=== PATIENT | female | born 1970 | race Caucasian/White ===

== ENCOUNTER 2016-04-21 07:12 | Emergency (ER) | payer MEDICARE, MEDICAID ==
[2016-04-21] MEDS ORDERED: ONDANSETRON HCL IV 4 MG/2 ML VIAL IVP ONE (07:26)
[2016-04-21] MEDS ORDERED: 0.9 % SODIUM CHLORIDE 1000ML 1,000 ML IV SCH (07:30)
--- NOTE | 2016-04-21 07:32 | Emergency Department Record ---
History of Present Illness - General Chief complaint: Vomiting Stated complaint: ABD PAIN & VOMITING Time Seen by Provider: 04/21/16 07:25 Source: Patient Mode of Arrival: Ambulatory Limitations: No limitations - History of Present Illness Initial comments: 45 yo female presents to ED with a CC of recurrent abdominal pain and vomiting symptoms. Patient reports similar symptoms following her Remicade infusions that she receives for her arthritis symptoms (last infusion was 1 week ago). Patient reports taking her Reglan at home x 2, vomited up the medication x 2. Patient denies fevers, chills, or recent illness. Patient reports that she has been evaluated for GB dysfunction and will be seeing Dr. Sandoval in the [facility] Specialty clinic in 2 weeks time. MD complaint: Abdominal pain, Nausea, Vomiting Onset/Timin -: Days(s) Description of Vomiting: Watery Location: Epigastric Radiation: Back Severity: Severe Severity scale (1-10): 10 Quality: Sharp Consistency: Constant Improves with: None Worsens with: Vomiting Context: Other Associated Symptoms: Nausea/vomiting - Related Data Home Medications Medication Instructions Recorded Confirmed Last Taken Oxymorphone HCl [Opana] 10 mg PO TID 06/21/14 04/21/16 02/23/16 Oxymorphone HCl [Opana Er] 30 mg PO Q12H tab 03/26/16 04/21/16 Unknown Previous Rx's Medication Instructions Recorded Promethazine HCl [Phenergan] 25 mg RC Q6H PRN #30 supp.rect 04/21/16 Allergies Allergy/AdvReac Type Severity Reaction Status Date / Time etanercept [From Enbrel] Allergy Severe HIVES Unverified 03/26/16 14:41 Echinacea [ECHINACEA] Allergy Unknown SWELLING Unverified 03/26/16 14:41 OF THE TONGUE hydroxychloroquine sulfate Allergy Unknown DIARRHEA Unverified 03/26/16 14:41 [From PLAQUENIL] hyoscyamine sulfate Allergy Unknown SKIN Unverified 03/26/16 14:41 [From LEVSIN] IRRITATION ketorolac tromethamine Allergy Unknown HIVES Unverified 03/26/16 14:41 [From TORADOL] methotrexate [METHOTREXATE] Allergy Unknown HYPERSENSIT Unverified 03/26/16 14: 41 IVITY Wpeocsg-Yxh-Cwt Reductase Allergy Unknown HIVES Unverified 03/26/16 14:41 Inhibitor [[id number] REDUCTASE INHIBITOR] Sulfa (Sulfonamide Allergy Unknown HIVES Unverified 03/26/16 14:41 Antibiotics) [SULFA(SULFONAMIDE ANTIBIOTICS)] niacin Allergy HIVES Unverified 03/26/16 14:41 Travel Screening - Travel/Exposure Within Last 30 Days Have you traveled within the last 30 days?: No Review of Systems Constitutional: Denies: Chills, Fever, Malaise, Night sweats Eyes: Denies: Eye discharge, Eye pain ENT: Denies: Congestion, Ear pain, Epistaxis Respiratory: Denies: Cough, Dyspnea Cardiovascular: Denies: Chest pain, Dyspnea on exertion Endocrine: Denies: Fatigue, Heat or cold intolerance Gastrointestinal: Reports: Abdominal pain, Nausea, Vomiting. Denies: Constipation Genitourinary: Denies: Dysuria, Frequency, Hematuria, Incontinence Musculoskeletal: Denies: Arthralgia, Back pain Skin: Denies: Bruising, Change in color Neurological: Denies: Abnormal gait, Confusion, Headache, Seizure Psychiatric: Reports: Anxiety Hematological/Lymphatic: Denies: Anemia, Blood Clots Past Medical History - SOCIAL HISTORY Smoking Status: Light tobacco smoker (<10/day) Alcohol Use: None Drug Use: None - RESPIRATORY Hx Respiratory Disorders: Yes Hx Pneumonia: Yes - CARDIOVASCULAR Hx Cardio Disorders: Yes Comment:: murmur - NEURO Hx Neuro Disorders: Yes Hx Headaches: Yes Hx Neuropathy: Yes Comment:: viral meningytis - GI Hx GI Disorders: Yes Hx Reflux: Yes Hx Irritable Bowel: Yes - Hx Genitourinary Disorders: No - ENDOCRINE Hx Endocrine Disorders: No - MUSCULOSKELETAL Hx Musculoskeletal Disorders: Yes Hx Arthritis: Yes Comment:: Chronic back pain...herniated discs - PSYCH Hx Psych Problems: Yes Hx Anxiety: Yes Hx Depression: Yes - HEMATOLOGY/ONCOLOGY Hx Hematology/Oncology Disorders: No Family Medical History Any Significant Family History?: No Physical Exam - General General Appearance: Alert, Oriented x3, Cooperative, Anxious Limitations: No limitations - Head Head exam: Atraumatic, Normocephalic, Normal inspection Head exam detail: negative: Abrasion, Contusion, Beyer's sign, General tenderness, Hematoma, Laceration - Eye Eye exam: Normal appearance. negative: Conjunctival injection, Periorbital swelling, Periorbital tenderness, Scleral icterus - ENT Ear exam: negative: Auricular hematoma, Auricular trauma Nasal Exam: negative: Active bleeding, Discharge, Dried blood, Foreign body Mouth exam: negative: Drooling, Laceration, Muffled voice, Tongue elevation - Neck Neck exam: Normal inspection. negative: Meningismus, Tenderness - Respiratory Respiratory exam: Normal lung sounds bilaterally. negative: Respiratory distress, Rhonchi, Stridor, Wheezes - Cardiovascular Cardiovascular Exam: Regular rate, Normal rhythm, Normal heart sounds - GI/Abdominal GI/Abdominal exam: Soft, Tenderness (mild TTP epigastric region, no rebound or guarding symptoms are present, no peritoneal signs on examination.). negative: Rebound, Rigid - Rectal Rectal exam: Deferred - exam: Deferred - Extremities Extremities exam: Normal inspection. negative: Calf tenderness, Pedal edema, Tenderness - Back Back exam: Reports: Normal inspection. Denies: CVA tenderness (R), CVA tenderness (L) - Neurological Neurological exam: Alert, Normal gait, Oriented X3 - Psychiatric Psychiatric exam: Anxious - Skin Skin exam: Normal color. negative: Abrasion Type of lesion: negative: abrasion Course Vital Signs 04/21/16 07:22 Temperature 98.3 F Pulse Rate [ 52 L Pulse Ox Probe] Respiratory 22 Rate Blood Pressure 158/123 [Left Arm] Pulse Ox 98 - Reevaluation(s) Reevaluation #1: 04/21/16 07:51 Labs reviewed, CO2 18, AG 19, labs are otherwise grossly unremarkable for an acute process. 04/21/16 07:52 Reevaluation #2: 04/21/16 08:06 Patient reassessed, no further vomiting, resting comfortably. Patient was updated on all results thus far, IVFs are infusing. Will reassess when IVFs are completed. Reevaluation #3: 04/21/16 09:05 Patient's IVFs have completed infusing, reports that her nausea symptoms are greatly improved following IV reglan and Benadryl. Patient appears stable for discharge at this time. Medical Decision Making - Lab Data Result diagrams: 04/21/16 07:25 04/21/16 07:25 Disposition Disposition: Discharge Clinical Impression: Vomiting Qualifiers: Vomiting type: unspecified Vomiting Intractability: non-intractable Nausea presence: with nausea Qualified Code(s): R11.2 - Nausea with vomiting, unspecified Disposition: Home, Self-Care Condition: (2) Stable Instructions: Acute Nausea and Vomiting (ED) Additional Instructions: Return to ED if your symptoms worsen or if you have any concerns. Phenergan suppositories as directed. Follow-up with Dr. Biggs in 1-3 days as directed. Prescriptions: Promethazine HCl [Phenergan] 25 mg RC Q6H PRN #30 supp.rect PRN Reason: Nausea/Vomiting Forms: Patient Portal Access Time of Disposition: 09:06
[2016-04-21 07:35] LABS: HEMATOCRIT 45.3 % (35.0-47.0); HEMOGLOBIN 15.7 gm/dl (11.6-16.0); MEAN CELL VOLUME 89.5 fl (81-97); MEAN CORPUSCULAR HGB CONC 34.7 g/dl (32-36); MEAN PLATELET VOLUME 11.1 fl (7.4-10.4); PLATELET COUNT 290 K/uL (130-400); RED BLOOD COUNT 5.06 M/uL (3.80-5.40); RED CELL DISTRIBUTION WIDTH 11.6 % (11.5-14.5); WHITE BLOOD COUNT W/O DIFF 9.3 K/uL (4.2-12.2)
[2016-04-21 07:44] LABS: PLATELET ESTIMATE NORMAL (NORMAL)
[2016-04-21 07:46] LABS: ALB/GLOB RATIO 1.4 (1.1-1.8); ALBUMIN 4.6 gm/dL (3.5-5.0); ALKALINE PHOSPHATASE 84 U/L (38-126); ALT/SGPT 37 U/L (9-52); ANION GAP 19.1 (7-16); AST/SGOT 39 U/L (14-36); BILIRUBIN,TOTAL 0.45 mg/dL (0.2-1.3); BLOOD UREA NITROGEN 9 mg/dL (7-17); CARBON DIOXIDE 17.9 mmol/L (22-30); CREATININE 0.6 mg/dL (0.52-1.04); EST GLOMERULAR FILTRATION RATE > 60 ml/min; GLUCOSE,RANDOM 100 mg/dL (70-110); LIPASE 147 U/L (23-300); TOTAL PROTEIN 7.9 gm/dL (6.3-8.2)
[2016-04-21] MEDS ORDERED: DIPHENHYDRAMINE HCL IV 50 MG/ML VIAL IVP ONE (08:37)
[2016-04-21] MEDS ORDERED: METOCLOPRAMIDE HCL 10 MG/2 ML VIAL IVP ONE (08:37)
== END 2016-04-21 09:18 | disposition home or self-care (01) ==
LOC: ER 07:12
DX: R11.2 Nausea with vomiting, unspecified (principal); R10.13 Epigastric pain
CPT/HCPCS: 99284 ×2; 96374; 96375; 96361; 83690; 80053; 85027; J2405; J1200; J2765; J7030

== ENCOUNTER 2017-03-11 09:44 | Observation (INO) | payer MEDICARE ==
[2017-03-11] MEDS ORDERED: 0.9 % SODIUM CHLORIDE 1,000 ML BAG IV ONE (09:55)
--- NOTE | 2017-03-11 10:02 | Emergency Department Record ---
History of Present Illness - General Chief complaint: Vomiting Stated complaint: vomiting Time Seen by Provider: 03/11/17 09:52 Source: Patient, Family Mode of Arrival: Ambulatory Limitations: No limitations - History of Present Illness Initial comments: 46 yo female presents with nausea, vomiting and abdominal pain. She reports for several years she has had recurrent episodes of similar nausea, vomiting and abdominal pain. No fever. The onset was this morning. She tried her medications without improvement. She states she has seen GI here at [facility] and she states no cause for her episodes has been found. She reports she is on a PPI daily and PRN antiemetics about once a month. MD complaint: Abdominal pain, Nausea, Vomiting Onset/Timin -: Hour(s) Description of Vomiting: Watery Associated Abdominal Pain: Yes Location: RUQ Radiation: None Severity: Severe Severity scale (1-10): 10 Consistency: Constant Improves with: None Worsens with: None Associated Symptoms: Fever/chills, Nausea/vomiting - Related Data Home Medications Medication Instructions Recorded Confirmed Last Taken Morphine Sulfate 30 mg PO Q12H 03/11/17 03/11/17 Unknown Allergies Allergy/AdvReac Type Severity Reaction Status Date / Time etanercept [From Enbrel] Allergy Severe HIVES Verified 03/11/17 09:55 Echinacea [ECHINACEA] Allergy Unknown SWELLING Verified 03/11/17 09:55 OF THE TONGUE hydroxychloroquine sulfate Allergy Unknown DIARRHEA Verified 03/11/17 09:55 [From PLAQUENIL] hyoscyamine sulfate Allergy Unknown SKIN Verified 03/11/17 09:55 [From LEVSIN] IRRITATION ketorolac tromethamine Allergy Unknown HIVES Verified 03/11/17 09:55 [From TORADOL] methotrexate [METHOTREXATE] Allergy Unknown HYPERSENSIT Verified 03/11/17 09:55 IVITY Ohsyrzt-Kdy-Zju Reductase Allergy Unknown HIVES Verified 03/11/17 09:55 Inhibitor [[id number] REDUCTASE INHIBITOR] Sulfa (Sulfonamide Allergy Unknown HIVES Verified 03/11/17 09:55 Antibiotics) [SULFA(SULFONAMIDE ANTIBIOTICS)] niacin Allergy HIVES Verified 03/11/17 09:55 Travel Screening - Travel/Exposure Within Last 30 Days Have you traveled within the last 30 days?: No Review of Systems Constitutional: Denies: Chills, Fever, Malaise, Weakness Eyes: Denies: Eye discharge ENT: Denies: Congestion, Throat pain Respiratory: Denies: Cough, Dyspnea, Hemoptysis, Stridor, Wheezes Cardiovascular: Denies: Chest pain, Palpitations, Syncope Endocrine: Denies: Fatigue, Polydipsia, Polyuria Gastrointestinal: Reports: Abdominal pain, Nausea, Vomiting. Denies: Constipation, Diarrhea, Hematemesis, Hematochezia, Melena Genitourinary: Denies: Dysuria, Urgency Musculoskeletal: Denies: Arthralgia, Back pain, Joint swelling, Myalgia Skin: Denies: Bruising, Change in color Neurological: Denies: Confusion, Headache, Numbness, Weakness Psychiatric: Denies: Anxiety Hematological/Lymphatic: Denies: Blood Clots, Easy bleeding, Easy bruising, Swollen glands Past Medical History - SOCIAL HISTORY Smoking Status: Light tobacco smoker (<10/day) Alcohol Use: None Drug Use: None - RESPIRATORY Hx Respiratory Disorders: Yes Hx Pneumonia: Yes - CARDIOVASCULAR Hx Cardio Disorders: Yes - NEURO Hx Neuro Disorders: Yes Hx Headaches: Yes Hx Neuropathy: Yes Comment:: viral meningytis - GI Hx GI Disorders: Yes Hx Abdominal Pain: Yes Hx Reflux: Yes Hx Irritable Bowel: Yes Hx Nausea/Vomiting: Yes Hx Wt Loss/Wt Gain: Yes (30#'s in 6 mos) - Hx Genitourinary Disorders: No - ENDOCRINE Hx Endocrine Disorders: No - MUSCULOSKELETAL Hx Musculoskeletal Disorders: Yes Hx Arthritis: Yes (RA) Comment:: Chronic back pain...herniated discs/Lupus - PSYCH Hx Psych Problems: Yes Hx Anxiety: Yes Hx Depression: Yes - HEMATOLOGY/ONCOLOGY Hx Hematology/Oncology Disorders: Yes Hx Bruising: Yes (after Remicade inf) Family Medical History Any Significant Family History?: Yes Hx Cancer: Grandparents *Cancer Comment: Grandmother/uncle-colon cancer Physical Exam - General General Appearance: Alert, Oriented x3, Cooperative, No acute distress Limitations: No limitations - Head Head exam: Normal inspection - Eye Eye exam: Normal appearance. negative: Conjunctival injection - ENT ENT exam: Normal exam, Mucous membranes moist Ear exam: Normal external inspection Nasal Exam: Normal inspection Mouth exam: Normal external inspection - Neck Neck exam: Normal inspection - Respiratory Respiratory exam: Normal lung sounds bilaterally. negative: Respiratory distress - Cardiovascular Cardiovascular Exam: Regular rate, Normal rhythm, Normal heart sounds - GI/Abdominal GI/Abdominal exam: Soft, Tenderness (epigstric). negative: Distended, Guarding , Hypoactive bowel sounds, Rebound - Rectal Rectal exam: Deferred - exam: Deferred - Extremities Extremities exam: Normal inspection, Full ROM, Normal capillary refill. negative: Tenderness - Back Back exam: Reports: Normal inspection, Full ROM. Denies: Muscle spasm, Rash noted, Tenderness - Neurological Neurological exam: Alert, Normal gait, Oriented X3 - Psychiatric Psychiatric exam: Normal affect, Normal mood - Skin Skin exam: Dry, Intact, Normal color, Warm Course Vital Signs 03/11/17 09:49 Temperature 97.8 F Pulse Rate 51 L Respiratory 22 Rate Blood Pressure 147/93 Pulse Ox 99 - Reevaluation(s) Reevaluation #1: 03/11/17 10:02 EMR reviewed. Gastritis noted on a 05/2016 endoscopy 03/11/17 10:48 No acute changes in the CBC 03/11/17 11:22 EKG 11:06 sinus brittny 45, intervals normal normal QTc, axis normal, ST normal. Prior EKG with sinus brittny 03/11/17 11:26 The patient was sleeping resting comfortably, no current vomiting. Upon waking she still has nausea and pain 03/11/17 12:18 The CBC,CMP and Lipase were reviewed and were negative 03/11/17 13:10 HCG is negative 03/11/17 13:38 No improvement of nausea I recommend OBV for intractable NV with GI consultation Medical Decision Making - Lab Data Result diagrams: 03/11/17 10:00 03/11/17 10:00 Disposition Disposition: Admit Clinical Impression: Vomiting Qualifiers: Vomiting type: unspecified Vomiting Intractability: non-intractable Nausea presence: with nausea Qualified Code(s): R11.2 - Nausea with vomiting, unspecified Disposition: Still a Patient at [facility] Decision to Admit: Admit from ER Decision to Admit Date: 03/11/17 Decision to Admit Time: 13:40 Time Discussed w/Accepting Physician: 13:40 Instructions: Acute Nausea and Vomiting (ED) Additional Instructions: Call your doctor and your GI doctor for close follow up of your recurrent vomiting Return if worse, fever, or vomiting that will not stop Forms: Patient Portal Access Time of Disposition: 13:40 Quality - Quality Measures Quality Measures: N/A - Blood Pressure Screening Does Patient Have Any of the Following: No Blood Pressure Classification: Hypertensive Reading Systolic Measurement: 147 Diastolic Measurement: 93 Screening for High Blood Pressure: < Pre-Hypertensive BP, F/U Documented > [ [id number]] Pre-Hypertensive Follow-up Interventions: Referral to alternative/primary care provider.
[2017-03-11 10:15] LABS: BASO % 0.2 % (0-6); EOS % 0.8 % (0-6); GRAN % 48.9 % (47-80); HEMATOCRIT 41.2 % (35.0-47.0); HEMOGLOBIN 14.7 gm/dl (11.6-16.0); LYMPH % 41.2 % (16-45); MEAN CORPUSCULAR HEMOGLOBIN 32.8 pg (27-33); MEAN CORPUSCULAR HGB CONC 35.7 g/dl (32-36); MEAN PLATELET VOLUME 10.2 fl (7.4-10.4); MONO % 8.9 % (0-9); PLATELET COUNT 311 K/uL (130-400); RED BLOOD COUNT 4.48 M/uL (3.80-5.40); RED CELL DISTRIBUTION WIDTH 11.9 % (11.5-14.5); WHITE BLOOD COUNT W/O DIFF 9.2 K/uL (4.2-12.2)
[2017-03-11] MEDS ORDERED: PROMETHAZINE HCL 25 MG in 0.9 % SODIUM CHLORIDE 100ML 100 ML IVPB ONE (10:19)
[2017-03-11] MEDS ORDERED: DIPHENHYDRAMINE HCL IV 50 MG/ML VIAL IVP ONE (10:19)
[2017-03-11] MEDS ORDERED: MORPHINE SULFATE 5 MG/ML PFS IVP ONE (10:29)
[2017-03-11] MEDS ORDERED: METOCLOPRAMIDE HCL 10 MG/2 ML VIAL IVP ONE (11:04)
[2017-03-11] MEDS ORDERED: PANTOPRAZOLE SODIUM IV 40 MG VIAL IVP ONE (11:04)
[2017-03-11 11:54] LABS: BLOOD UREA NITROGEN 13 mg/dL (6-20)
[2017-03-11 11:55] LABS: CREATININE 0.6 mg/dL (0.5-0.9); EST GLOMERULAR FILTRATION RATE > 60 mL/min; TOTAL PROTEIN 7.6 g/dL (6.6-8.7)
[2017-03-11 11:57] LABS: GLUCOSE,RANDOM 105 mg/dL (74-109)
[2017-03-11 12:00] LABS: ALBUMIN 4.7 g/dL (4.0-5.0); ALKALINE PHOSPHATASE 72 U/L (35-104); ALT/SGPT 13 U/L (<33); AST/SGOT 28 U/L (10.0-35.0); LIPASE 36 U/L (13-60)
[2017-03-11 12:05] LABS: BILIRUBIN,DIRECT < 0.2 mg/dL (0-0.3)
[2017-03-11 12:12] LABS: URINE APPEARANCE CLEAR; URINE BILIRUBIN NEGATIVE (NEGATIVE); URINE BLOOD NEGATIVE (NEGATIVE); URINE COLOR YELLOW; URINE GLUCOSE (UA) NEGATIVE (NEGATIVE); URINE KETONE TRACE (NEGATIVE); URINE LEUKOCYTE ESTERASE NEGATIVE (NEGATIVE); URINE NITRITE NEGATIVE (NEGATIVE); URINE PROTEIN NEGATIVE (NEGATIVE); URINE UROBILINOGEN 0.2 E.U./dL (0.20 - 1.00)
[2017-03-11 12:18] LABS: HCG,QUALITATIVE URINE NEGATIVE (NEGATIVE)
[2017-03-11] MEDS ORDERED: ONDANSETRON HCL IV 4 MG/2 ML VIAL IVP ONE ×2 (13:39→16:57)
[2017-03-11] MEDS ORDERED: 0.9 % SODIUM CHLORIDE 1000ML 1,000 ML IV PRN (16:57)
[2017-03-11] MEDS ORDERED: OXYMORPHONE HCL 10 MG PO SCH (16:57)
[2017-03-11] MEDS ORDERED: BACLOFEN 20 MG PO SCH (16:57)
[2017-03-11] MEDS ORDERED: METOCLOPRAMIDE HCL 10 MG/2 ML VIAL IVP PRN (16:57)
[2017-03-11] MEDS ORDERED: MORPHINE SULFATE 30MG TABLET.ER PO SCH (16:57)
[2017-03-12] MEDS ORDERED: PANTOPRAZOLE SODIUM IV 40 MG VIAL IVP SCH (10:00)
--- NOTE | 2017-03-12 10:38 | History & Physical ---
History of Present Illness - Date of Service Date of Service for History & Physical: 03/12/17 - History of Present Illness Admitting Diagnosis: intractable vomiting History of Present Illness: 46yo with CC of intractable nausea. She has history of the same and follows with [facility]. I was unable to obtain a history and physical because patient decided to leave AMA within 30 minutes of coming to the floor. I was able to speak with her briefly when nursing alerted me that she was wanting to sign out AMA. I discussed that leaving would be against our medical advice. I advised her that staying through the night would allow us to monitor her nausea/vomiting and give us the ability to administer IV antiemetics and IV fluids to prevent dehydration. I also informed her that Dr. Chapa, GI was consulted to see her in the morning which could provide us with further recommendations for treating her N/V. I cautioned her about the risks of leaving including persistent N/V, dehydration, electrolyte imbalances, recurrence of symptoms. She voiced her understanding but signed out AMA. I did encourage her to return to ED if she has continued or worsening of her symptoms Travel Screening - Travel/Exposure Within Last 30 Days Have you traveled within the last 30 days?: No Review of Systems Constitutional: Denies: Chills, Fever, Malaise, Weakness Eyes: Denies: Eye discharge ENT: Denies: Congestion, Throat pain Respiratory: Denies: Cough, Dyspnea, Hemoptysis, Stridor, Wheezes Cardiovascular: Denies: Chest pain, Palpitations, Syncope Endocrine: Denies: Fatigue, Polydipsia, Polyuria Gastrointestinal: Reports: Nausea, Vomiting. Denies: Abdominal pain, Constipation, Diarrhea, Hematemesis, Hematochezia, Melena Genitourinary: Denies: Dysuria, Urgency Musculoskeletal: Denies: Arthralgia, Back pain, Joint swelling, Myalgia Skin: Denies: Bruising, Change in color Neurological: Denies: Confusion, Headache, Numbness, Weakness Psychiatric: Denies: Anxiety Hematological/Lymphatic: Denies: Blood Clots, Easy bleeding, Easy bruising, Swollen glands Past Medical History - SOCIAL HISTORY Smoking Status: Light tobacco smoker (<10/day) Alcohol Use: None Drug Use: None - RESPIRATORY Hx Respiratory Disorders: Yes Hx Pneumonia: Yes - CARDIOVASCULAR Hx Cardio Disorders: Yes - NEURO Hx Neuro Disorders: Yes Hx Headaches: Yes Hx Neuropathy: Yes Comment:: viral meningytis - GI Hx GI Disorders: Yes Hx Abdominal Pain: Yes Hx Reflux: Yes Hx Irritable Bowel: Yes Hx Nausea/Vomiting: Yes Hx Wt Loss/Wt Gain: Yes (30#'s in 6 mos) - Hx Genitourinary Disorders: No - ENDOCRINE Hx Endocrine Disorders: No - MUSCULOSKELETAL Hx Musculoskeletal Disorders: Yes Hx Arthritis: Yes (RA) Comment:: Chronic back pain...herniated discs/Lupus - PSYCH Hx Psych Problems: Yes Hx Anxiety: Yes Hx Depression: Yes - HEMATOLOGY/ONCOLOGY Hx Hematology/Oncology Disorders: Yes Hx Bruising: Yes (after Remicade inf) Family Medical History Any Significant Family History?: Yes Hx Cancer: Grandparents *Cancer Comment: Grandmother/uncle-colon cancer H&P Meds/Allergies - Allergies Allergies: Allergies Allergy/AdvReac Type Severity Reaction Status Date / Time etanercept [From Enbrel] Allergy Severe HIVES Verified 03/11/17 09:55 Echinacea [ECHINACEA] Allergy Unknown SWELLING Verified 03/11/17 09:55 OF THE TONGUE hydroxychloroquine sulfate Allergy Unknown DIARRHEA Verified 03/11/17 09:55 [From PLAQUENIL] hyoscyamine sulfate Allergy Unknown SKIN Verified 03/11/17 09:55 [From LEVSIN] IRRITATION ketorolac tromethamine Allergy Unknown HIVES Verified 03/11/17 09:55 [From TORADOL] methotrexate [METHOTREXATE] Allergy Unknown HYPERSENSIT Verified 03/11/17 09:55 IVITY Xbtlizg-Yrh-Sgb Reductase Allergy Unknown HIVES Verified 03/11/17 09:55 Inhibitor [[id number]-YXM REDUCTASE INHIBITOR] Sulfa (Sulfonamide Allergy Unknown HIVES Verified 03/11/17 09:55 Antibiotics) [SULFA(SULFONAMIDE ANTIBIOTICS)] niacin Allergy HIVES Verified 03/11/17 09:55 - Home Medications Home Medications Medication Instructions Recorded Confirmed Last Taken Morphine Sulfate 30 mg PO Q12H 03/11/17 03/11/17 Unknown Previous Rx's Medication Instructions Recorded Ondansetron [Zofran Odt] 4 mg PO Q8H PRN #20 tab.rapdis 03/11/17 Physical Exam - Vital Signs Vital Signs: Vital Signs - Last 24 Hrs Pulse Resp BP Pulse Ox 03/11/17 16:57 61 18 113/86 100 - General General Appearance: Alert, Oriented x3, Cooperative, No acute distress Limitations: No limitations - Head Head exam: Normal inspection - Eye Eye exam: Normal appearance. negative: Conjunctival injection - ENT ENT exam: Normal exam, Mucous membranes moist Ear exam: Normal external inspection Nasal Exam: Normal inspection Mouth exam: Normal external inspection - Neck Neck exam: Normal inspection - Respiratory Respiratory exam: Normal lung sounds bilaterally. negative: Respiratory distress - Cardiovascular Cardiovascular Exam: Regular rate, Normal rhythm, Normal heart sounds - GI/Abdominal GI/Abdominal exam: Soft. negative: Distended, Guarding, Hypoactive bowel sounds , Rebound - Rectal Rectal exam: Deferred - exam: Deferred - Extremities Extremities exam: Normal inspection, Full ROM, Normal capillary refill. negative: Tenderness - Back Back exam: Reports: Normal inspection, Full ROM. Denies: Muscle spasm, Rash noted, Tenderness - Neurological Neurological exam: Alert, Normal gait, Oriented X3 - Psychiatric Psychiatric exam: Normal affect, Normal mood - Skin Skin exam: Dry, Intact, Normal color, Warm Results - Labs Result Diagrams: 03/11/17 10:00 03/11/17 10:00 VTE H&P Assessment - Risk for VTE Risk for VTE: No Risk Level: Low Risk Assessment Date: 03/11/17 Risk Assessment Time: 17:00 VTE Orders Placed or Will Be Placed: Yes Plan - Detailed Diagnosis and Plan (1) Vomiting Status: Acute Qualifiers: Vomiting type: unspecified Vomiting Intractability: non-intractable Nausea presence: with nausea Qualified Code(s): R11.2 - Nausea with vomiting, unspecified Base Code: R11.10 - VOMITING, UNSPECIFIED Comment: 03/11/17- improved. Patient signed out AMA within 30 mintues of coming to the floor. We had planned for continued IVF with NS, IV antiemetics, and consultation with GI in the morning. She was made aware of this plan but still chose to sign out AMA -I sent a script for zofran 4mg ODT q8H prn vomiting to pharmacy (2) DVT prophylaxis Status: Acute Base Code: [id number] - Comment: 03/11/17- patient signed out AMA prior to receiving DVT prophylaxis - Disposition left AMA
--- NOTE | 2017-03-12 10:43 | Discharge Summary ---
Providers Discharge Summary Date: 03/11/17 Date of admission: 03/11/17 16:12 Attending physician: Francisco Cantu Primary care physician: ELSIE MURILLO Physical Exam - Vital Signs Vital Signs: Vital Signs - Last 24 Hrs Pulse Resp BP Pulse Ox 03/11/17 16:57 61 18 113/86 100 - General General Appearance: Alert, Oriented x3, Cooperative, No acute distress Limitations: No limitations - Head Head exam: Normal inspection - Eye Eye exam: Normal appearance. negative: Conjunctival injection - ENT ENT exam: Normal exam, Mucous membranes moist Ear exam: Normal external inspection Nasal Exam: Normal inspection Mouth exam: Normal external inspection - Neck Neck exam: Normal inspection - Respiratory Respiratory exam: Normal lung sounds bilaterally. negative: Respiratory distress - Cardiovascular Cardiovascular Exam: Regular rate, Normal rhythm, Normal heart sounds - GI/Abdominal GI/Abdominal exam: Soft. negative: Distended, Guarding, Hypoactive bowel sounds , Rebound - Rectal Rectal exam: Deferred - exam: Deferred - Extremities Extremities exam: Normal inspection, Full ROM, Normal capillary refill. negative: Tenderness - Back Back exam: Reports: Normal inspection, Full ROM. Denies: Muscle spasm, Rash noted, Tenderness - Neurological Neurological exam: Alert, Normal gait, Oriented X3 - Psychiatric Psychiatric exam: Normal affect, Normal mood - Skin Skin exam: Dry, Intact, Normal color, Warm Hospitalization - Hospitalization Admission Diagnosis: intractable vomiting - Problem List/Discharge Diagnosis (1) Vomiting Status: Acute Discharge Diagnosis: Vomiting type: unspecified Vomiting Intractability: non-intractable Nausea presence: with nausea Qualified Code(s): R11.2 - Nausea with vomiting, unspecified Base Code: R11.10 - VOMITING, UNSPECIFIED Comment: 03/11/17- improved. Patient signed out AMA within 30 mintues of coming to the floor. We had planned for continued IVF with NS, IV antiemetics, and consultation with GI in the morning. She was made aware of this plan but still chose to sign out AMA -I sent a script for zofran 4mg ODT q8H prn vomiting to pharmacy (2) DVT prophylaxis Status: Acute Base Code: [id number] - Comment: 03/11/17- patient signed out AMA prior to receiving DVT prophylaxis - Disposition left AMA - Hospitalization Course Disposition: Against Medical Advice Hospital Course: 46yo with CC of intractable nausea. She has history of the same and follows with [facility]. I was unable to obtain a history and physical because patient decided to leave AMA within 30 minutes of coming to the floor. I was able to speak with her briefly when nursing alerted me that she was wanting to sign out AMA. I discussed that leaving would be against our medical advice. I advised her that staying through the night would allow us to monitor her nausea/vomiting and give us the ability to administer IV antiemetics and IV fluids to prevent dehydration. I also informed her that Dr. Chapa, GI was consulted to see her in the morning which could provide us with further recommendations for treating her N/V. I cautioned her about the risks of leaving including persistent N/V, dehydration, electrolyte imbalances, recurrence of symptoms. She voiced her understanding but signed out AMA. I did encourage her to return to ED if she has continued or worsening of her symptoms Condition at Discharge: (2) Stable Discharge Medications - Discharge Medications Prescriptions: Ondansetron [Zofran Odt] 4 mg PO Q8H PRN #20 tab.rapdis PRN Reason: Nausea Home Medications: Ambulatory Orders Oxymorphone HCl [Opana] 10 mg PO TID 06/21/14 [Last Taken 02/23/16] Acyclovir 400 mg PO ASDIR 30 Days #60 10/19/16 [Last Taken Unknown] Baclofen 20 mg PO ASDIR 30 Days #30 10/19/16 [Last Taken Unknown] Acetaminophen [Tylenol Arthritis] 650 mg PO ASDIR tab 12/15/16 [Last Taken Unknown] Morphine Sulfate 30 mg PO Q12H 03/11/17 [Last Taken Unknown] Ondansetron [Zofran Odt] 4 mg PO Q8H PRN #20 tab.rapdis 03/11/17 [Last Taken Unknown] Discharge Plan - Discharge Instructions Instructions: Acute Nausea and Vomiting (ED) Additional Instructions: Call your doctor and your GI doctor for close follow up of your recurrent vomiting Return if worse, fever, or vomiting that will not stop Quality Measures - Quality Measures Quality Measures: Documentation of Current Medications in Medical Record, Screening for High Blood Pressure and F/U Documented - Current Medications Quality Measure: Measure #130: Documentation of Current Medications Documentation of Current Medications: <Current Medications Documented/Reviewed> [G8427] - Blood Pressure Screening Quality Measure: Screening for High Blood Pressure and Follow-Up Documented Does Patient Have Any of the Following: No Blood Pressure Classification: Hypertensive Reading Systolic Measurement: 147 Diastolic Measurement: 93 Screening for High Blood Pressure: < First Hypertensive BP, F/U Documented > [ G8950] First Hypertensive Follow-up Interventions: Referral to alternative/primary care provider. - Elder Abuse Suspicion Index EASI Reference Information: Nigel LAZAR, Flower C, Danielle Pendleton, Sidney James.Development and validation of a tool to assist physicians identification of elder abuse: The Elder Abuse Suspicion Index (EASI ). Journal of Elder Abuse and Neglect, 2008; 20 (3): 276-300.
== END 2017-03-11 17:25 | disposition left against medical advice (07) ==
LOC: ER 09:44 → MEDSURG 16:12
PROVIDERS: ADMIT Internal Medicine; ATTEND Internal Medicine
DX: R11.2 Nausea with vomiting, unspecified (principal); M06.9 Rheumatoid arthritis, unspecified; F41.8 Other specified anxiety disorders; Z72.0 Tobacco use
CPT/HCPCS: 99285 ×2; 96374; 96361; 83690; 85025; 80076; 80048; 81003; 81025; 93005; 93010; G0378; J2405; J2270; 99235; C9113; J1200; J2550; J2765; J7030

== ENCOUNTER 2017-07-02 07:28 | Day surgery (SDC) | payer MEDICARE, MEDICAID ==
[2017-07-02] MEDS ORDERED: PROPOFOL 10 MG/ML VIAL IV ONE (07:29)
[2017-07-02] MEDS ORDERED: LIDOCAINE 2% MDV (20MG/ML) 20ML VIAL IV ONE (07:29)
--- NOTE | 2017-07-05 13:30 | Operative Note ---
DATE OF SERVICE: 07/02/2017. DATE OF SURGERY: 07/02/2017. REFERRING PHYSICIAN: Juan Clay MD. Surgeon: Hetal Ralph MD. OPERATION: Colonoscopy. Indication for Procedure: This is a 47-year-old female with family history of colon polyps and colon cancer, who presented for screening colonoscopy. POSTOPERATIVE DIAGNOSES:1. Left-sided colon diverticulosis.2. A 1 cm sessile polyp in the descending colon that was removed by snare cautery. 3. Grade 1 internal hemorrhoids. SEDATION: Sedation is per Anesthesia. Pulse oximetry was monitored throughout the duration of the procedure to maintain O2 saturation of 90% or greater. Supplemental oxygen was administered via nasal cannula. Cardiac and vital signs were monitored throughout the duration of the procedure, and they were stable. PROCEDURE: The procedure of colonoscopy, risks and alternatives to the procedure, including the risks of bleeding and perforation among others, were explained to the patient; she voiced understanding and agrees to have the procedure done. Physical examination was performed, and the patient was found stable for sedation. The patient was then placed in the left lateral position and sedation was initiated. Digital rectal exam was performed and showed small external hemorrhoids with no palpable rectal masses. An Olympus PCF1 80AL colonoscope was then inserted into the rectum and under direct visualization was advanced to the cecum without difficulty. The ileocecal valve and appendiceal orifice were identified and photographed. The colonic mucosa was carefully examined upon introduction of the colonoscope. There were scattered diverticula, mainly in the descending colon. In the descending colon was a 1 cm sessile polyp that was removed by hot snare. The colonoscope was then withdrawn very carefully, re-examining the colonic mucosal surfaces. No other lesions were noted. The colonoscope was then brought down to the rectum, and retroflexion maneuver was performed, and Grade 1 internal hemorrhoids were noted. The colonoscope was then withdrawn, and the procedure was terminated. The patient tolerated the procedure well, without immediate complications. She remained with stable vital signs and was transferred into the recovery room. PLAN AND RECOMMENDATIONS:1. Patient is to be on a high fiber diet.2. She is to have repeat colonoscopy for surveillance in 3-5 years, depending on the pathology of the polyp.Thank you for allowing me to participate in the care of your patient. CC: MD Juan Fitch MD [facility]ITAL[facility]er[facility]
== END 2017-07-02 09:03 | disposition home or self-care (01) ==
LOC: HOP 07:28
PROVIDERS: ATTEND Internal Medicine Gastroenterology
DX: Z12.11 Encounter for screening for malignant neoplasm of colon (principal); Z80.0 Family history of malignant neoplasm of digestive organs; Z83.71 Family history of colonic polyps; D12.4 Benign neoplasm of descending colon; M19.90 Unspecified osteoarthritis, unspecified site; K21.9 Gastro-esophageal reflux disease without esophagitis; F41.8 Other specified anxiety disorders; K57.30 Diverticulosis of large intestine without perforation or abscess without bleeding; K64.0 First degree hemorrhoids

== ENCOUNTER 2017-08-19 19:49 | Emergency (ER) | payer MEDICARE, MEDICAID ==
--- NOTE | 2017-08-19 20:29 | Emergency Department Record ---
History of Present Illness - General Chief complaint: Vomiting Stated complaint: VOMITING Time Seen by Provider: 08/19/17 20:25 Source: Patient Mode of Arrival: Ambulatory Limitations: No limitations - History of Present Illness Initial comments: 47 yo female presents with recurrent nausea, vomiting, abdominal pain and loose stools. She has a history over the last 2-3 years of similar symptoms. She states she has been worked up by her PCP and GI. She had a colonoscopy in June. The colonoscopy demonstrated diverticulosis on the left, polyp, hemorrhoids. The pain is a sharp cramp like pain. It is on the right mostly RUQ. She states this is typical. She has had work up of the gall bladder in the past that was negative. Last CT was 05/2015 that was negative. US 02/2016 was negative. Gastric Emptying Study 05/2016 Normal. HIDA scan 02/2016 was normal with EF of 91%. MD complaint: Abdominal pain, Diarrhea, Nausea, Vomiting Onset/Timin -: Hour(s) Description of Vomiting: Watery Description of Diarrhea: Water Associated Abdominal Pain: Yes Location: RUQ Severity scale (1-10): 8 Quality: Cramping Improves with: None - Related Data Previous Rx's Medication Instructions Recorded Ondansetron [Zofran Odt] 4 mg PO Q8H PRN #20 tab.rapdis 03/11/17 Allergies Allergy/AdvReac Type Severity Reaction Status Date / Time etanercept [From Enbrel] Allergy Severe HIVES Verified 03/11/17 09:55 Echinacea [ECHINACEA] Allergy Unknown SWELLING Verified 03/11/17 09:55 OF THE TONGUE hydroxychloroquine sulfate Allergy Unknown DIARRHEA Verified 03/11/17 09:55 [From PLAQUENIL] hyoscyamine sulfate Allergy Unknown SKIN Verified 03/11/17 09:55 [From LEVSIN] IRRITATION ketorolac tromethamine Allergy Unknown HIVES Verified 03/11/17 09:55 [From TORADOL] methotrexate [METHOTREXATE] Allergy Unknown HYPERSENSIT Verified 03/11/17 09:55 IVITY Hxrbeny-Tie-Fsw Reductase Allergy Unknown HIVES Verified 03/11/17 09:55 Inhibitor [YVBOHIY-CJC-[id number] REDUCTASE INHIBITOR] Sulfa (Sulfonamide Allergy Unknown HIVES Verified 03/11/17 09:55 Antibiotics) [SULFA(SULFONAMIDE ANTIBIOTICS)] niacin Allergy HIVES Verified 03/11/17 09:55 Travel Screening - Travel/Exposure Within Last 30 Days Have you traveled within the last 30 days?: No - Travel Symptoms Symptom Screening: None Review of Systems Constitutional: Denies: Chills, Fever, Malaise, Weakness Eyes: Denies: Eye discharge, Eye pain ENT: Denies: Congestion, Throat pain Respiratory: Denies: Cough Cardiovascular: Denies: Chest pain, Syncope Endocrine: Denies: Fatigue, Polydipsia, Polyuria Gastrointestinal: Reports: Abdominal pain, Diarrhea, Nausea, Vomiting. Denies: Constipation, Hematemesis, Hematochezia, Melena Genitourinary: Denies: Dysuria, Urgency Musculoskeletal: Reports: Arthralgia (chronic), Myalgia. Denies: Back pain Skin: Denies: Bruising, Change in color, Rash Neurological: Denies: Headache, Numbness, Weakness Psychiatric: Denies: Anxiety Hematological/Lymphatic: Denies: Blood Clots, Easy bleeding, Easy bruising, Swollen glands Past Medical History - SOCIAL HISTORY Smoking Status: Light tobacco smoker (<10/day) - RESPIRATORY Hx Respiratory Disorders: Yes Comment:: current smoker - CARDIOVASCULAR Hx Cardio Disorders: Yes - NEURO Hx Neuro Disorders: Yes Hx Neuropathy: Yes Comment:: viral meningitis - GI Hx GI Disorders: Yes Hx Abdominal Pain: Yes Hx Nausea/Vomiting: Yes - Hx Genitourinary Disorders: No Comment:: hystectomy - ENDOCRINE Hx Endocrine Disorders: Yes - MUSCULOSKELETAL Hx Musculoskeletal Disorders: Yes Hx Arthritis: Yes (R.A) - PSYCH Hx Psych Problems: Yes Hx Depression: Yes - HEMATOLOGY/ONCOLOGY Hx Hematology/Oncology Disorders: Yes Hx Bruising: Yes (after Remicade inf) Family Medical History Any Significant Family History?: Yes Family Hx Comment (NOT TO BE USED IN PLACE OF ITEMS BELOW): son- had colon polyps age 2. father- hx colon polyps. mother/aunts-diverticulitis *Cancer Comment: Grandmother/uncle-colon cancer Physical Exam - General General Appearance: Alert, Oriented x3, Cooperative, No acute distress Limitations: No limitations - Head Head exam: Normal inspection - Eye Eye exam: Normal appearance, PERRL. negative: Conjunctival injection, Scleral icterus - ENT ENT exam: Normal exam, Mucous membranes moist Ear exam: Normal external inspection Nasal Exam: Normal inspection Mouth exam: Normal external inspection - Neck Neck exam: Normal inspection - Respiratory Respiratory exam: Normal lung sounds bilaterally. negative: Respiratory distress - Cardiovascular Cardiovascular Exam: Regular rate, Normal rhythm, Normal heart sounds - GI/Abdominal GI/Abdominal exam: Soft, Tenderness (tender RUQ otherwise the abdomen is very soft on palpation). negative: Distended, Guarding - Rectal Rectal exam: Deferred - exam: Deferred - Extremities Extremities exam: Normal inspection, Full ROM, Normal capillary refill. negative: Tenderness - Back Back exam: Reports: Normal inspection. Denies: CVA tenderness (R), CVA tenderness (L) - Neurological Neurological exam: Alert, Oriented X3 - Psychiatric Psychiatric exam: Normal affect, Normal mood - Skin Skin exam: Dry, Intact, Normal color, Warm Course Vital Signs 08/19/17 20:18 Temperature 98.7 F Pulse Rate [ 46 L Pulse Ox Probe] Respiratory 16 Rate Blood Pressure 133/75 [Left Arm] Pulse Ox 98 - Reevaluation(s) Reevaluation #1: 08/19/17 21:21 The labs were reviewed The CBC demonstrates a WBC of 13. The AG is 20 No acute changes of the LFT or pancreas. The HCG is normal 08/19/17 22:34 The patient is feeling greatly improved. She is requesting DC at this time. I recommended 1-2 days of liquid bland diet. She is to return if the symptoms return, pain, fever or vomiting. Medical Decision Making - Lab Data Result diagrams: 08/19/17 20:23 08/19/17 20:23 Disposition Disposition: Discharge Clinical Impression: Vomiting Qualifiers: Vomiting type: unspecified Vomiting Intractability: non-intractable Nausea presence: with nausea Qualified Code(s): R11.2 - Nausea with vomiting, unspecified Disposition: Home, Self-Care Condition: (1) Good Instructions: Acute Nausea and Vomiting (ED) Additional Instructions: Call Dr Clay tomorrow Liquids diet the next 1-2 days Return to the ED if the vomiting returns, fever or pain Forms: Patient Portal Access Time of Disposition: 22:37 Quality - Quality Measures Quality Measures: N/A - Blood Pressure Screening Does Patient Have Any of the Following: No Blood Pressure Classification: Pre-Hypertensive BP Reading Systolic Measurement: 129 Diastolic Measurement: 69 Screening for High Blood Pressure: < Pre-Hypertensive BP, F/U Documented > [ G8950] Pre-Hypertensive Follow-up Interventions: Referral to alternative/primary care provider.
[2017-08-19] MEDS ORDERED: 0.9 % SODIUM CHLORIDE 1,000 ML BAG IV ONE (20:35)
[2017-08-19] MEDS ORDERED: METOCLOPRAMIDE HCL 10 MG/2 ML VIAL IVP ONE (20:35)
[2017-08-19 20:47] LABS: BASO % 0.1 % (0-6); GRAN % 80.9 % (47-80); HEMATOCRIT 46.3 % (35.0-47.0); HEMOGLOBIN 16.5 gm/dl (11.6-16.0); LYMPH % 15.4 % (16-45); MEAN CELL VOLUME 89.7 fl (81-97); MEAN CORPUSCULAR HGB CONC 35.6 g/dl (32-36); MEAN PLATELET VOLUME 11.6 fl (7.4-10.4); MONO % 3.6 % (0-9); PLATELET COUNT 339 K/uL (130-400); RED BLOOD COUNT 5.16 M/uL (3.80-5.40); WHITE BLOOD COUNT W/O DIFF 13.3 K/uL (4.2-12.2)
[2017-08-19 20:48] LABS: MEAN CORPUSCULAR HEMOGLOBIN 31.9 pg (27-33)
[2017-08-19 21:02] LABS: BLOOD UREA NITROGEN 11 mg/dL (6-20); CREATININE 0.6 mg/dL (0.5-0.9); EST GLOMERULAR FILTRATION RATE > 60 mL/min
[2017-08-19 21:03] LABS: TOTAL PROTEIN 8.3 g/dL (6.6-8.7)
[2017-08-19 21:05] LABS: GLUCOSE,RANDOM 106 mg/dL (74-109)
[2017-08-19 21:07] LABS: ALB/GLOB RATIO 1.8 (1.1-1.8); ALBUMIN 5.3 g/dL (4.0-5.0); ALT/SGPT 13 U/L (<33); AST/SGOT 18 U/L (10.0-35.0)
[2017-08-19 21:08] LABS: ALKALINE PHOSPHATASE 74 U/L (35-104); LIPASE 22 U/L (13-60)
[2017-08-19] MEDS ORDERED: MORPHINE SULFATE 4MG/ML PREFILLED SYRINGE IVP ONE (21:22)
== END 2017-08-19 22:59 | disposition home or self-care (01) ==
LOC: ER 19:49
DX: R11.2 Nausea with vomiting, unspecified (principal); R10.11 Right upper quadrant pain; R19.7 Diarrhea, unspecified; F17.210 Nicotine dependence, cigarettes, uncomplicated
CPT/HCPCS: 99284 ×2; 96374; 96375; 96361; 83690; 85025; 80053; 84703; J2274; J2765; J7030

== ENCOUNTER 2017-10-13 12:53 | Observation (INO) | payer MEDICARE ==
[2017-10-13] MEDS ORDERED: HYDROMORPHONE HCL 2 MG/ML VIAL IVP ONE ×3 (13:26→18:49)
[2017-10-13] MEDS ORDERED: 0.9 % SODIUM CHLORIDE 1,000 ML BAG IV ONE (13:26)
[2017-10-13] MEDS ORDERED: PROMETHAZINE HCL 25 MG in 0.9 % SODIUM CHLORIDE 100ML 100 ML IVPB ONE (13:26)
--- NOTE | 2017-10-13 13:27 | Emergency Department Record ---
History of Present Illness - General Chief Complaint: Abdominal Pain Stated Complaint: ABDOMINAL PAIN,VOMIT,DIARRHEA Time Seen by Provider: 10/13/17 13:08 Source: Patient, RN notes reviewed Mode of Arrival: Ambulatory - History of Present Illness Initial Comments: abdominal pain and vomiting yesterday and diarrhea today and she uses narcotics for her arthritis. She has not keep her narcotics down for 30 hours.imultiple workup for this problem by primary and GI DRElieser Onset/Timin -: Hour(s) Location: RUQ Radiation: None Severity: Moderate Severity scale (1-10): 8 Quality: Cramping Consistency: Intermittent Improves With: Nothing Worsens With: Nothing Associated Symptoms: Diarrhea, Vomiting Treatments Prior to Arrival: Prescription analgesics - Related Data Patient : No Home Medications Medication Instructions Recorded Confirmed Last Taken Citalopram Hydrobromide 10 mg PO DAILY 10/13/17 10/13/17 10/12/17 [Citalopram HBr] Previous Rx's Medication Instructions Recorded Ondansetron [Zofran Odt] 4 mg PO Q8H PRN #20 tab.rapdis 03/11/17 Hyoscyamine Sulfate [Levsin-Sl] 0.125 mg SL Q6HR #20 tab.subl 10/13/17 Allergies Allergy/AdvReac Type Severity Reaction Status Date / Time etanercept [From Enbrel] Allergy Severe HIVES Verified 10/13/17 13:04 Echinacea [ECHINACEA] Allergy Unknown SWELLING Verified 10/13/17 13:04 OF THE TONGUE hydroxychloroquine sulfate Allergy Unknown DIARRHEA Verified 10/13/17 13:04 [From PLAQUENIL] hyoscyamine sulfate Allergy Unknown SKIN Verified 10/13/17 13:04 [From LEVSIN] IRRITATION ketorolac tromethamine Allergy Unknown HIVES Verified 10/13/17 13:04 [From TORADOL] methotrexate [METHOTREXATE] Allergy Unknown HYPERSENSIT Verified 10/13/17 13:04 IVITY Anweivr-Eqx-Nxo Reductase Allergy Unknown HIVES Verified 10/13/17 13:04 Inhibitor [[id number]-[id number] REDUCTASE INHIBITOR] Sulfa (Sulfonamide Allergy Unknown HIVES Verified 10/13/17 13:04 Antibiotics) [SULFA(SULFONAMIDE ANTIBIOTICS)] niacin Allergy HIVES Verified 10/13/17 13:04 Travel Screening - Travel/Exposure Within Last 30 Days Have you traveled within the last 30 days?: No - Travel/Exposure Within Last Year Have you traveled outside the [place] in the last year?: No - Additonal Travel Details Have you been exposed to anyone with a communicable illness?: No - Travel Symptoms Symptom Screening: None Review of Systems Reviewed: No additional complaints except as noted below Constitutional: Reports: As per HPI. Denies: Chills, Fever, Malaise, Night sweats, Weakness, Weight change Eyes: Reports: As per HPI. Denies: Eye discharge, Eye pain, Photophobia, Vision change ENT: Reports: As per HPI. Denies: Congestion, Dental pain, Ear pain, Epistaxis , Hearing loss, Throat pain Respiratory: Reports: As per HPI. Denies: Cough, Dyspnea, Hemoptysis, Stridor, Wheezes Cardiovascular: Reports: As per HPI. Denies: Arrhythmia, Chest pain, Dyspnea on exertion, Edema, Murmurs, Orthopnea, Palpitations, Paroxysmal nocturnal dyspnea, Rheumatic Fever, Syncope Endocrine: Reports: As per HPI. Denies: Fatigue, Heat or cold intolerance, Polydipsia, Polyuria Gastrointestinal: Reports: As per HPI, Abdominal pain, Diarrhea, Vomiting. Denies: Constipation, Hematemesis, Hematochezia, Melena, Nausea Genitourinary: Reports: As per HPI. Denies: Abnormal menses, Discharge, Dyspareunia, Dysuria, Frequency, Hematuria, Incontinence, Retention, Urgency Musculoskeletal: Reports: As per HPI. Denies: Arthralgia, Back pain, Gout, Joint swelling, Myalgia, Neck pain Skin: Reports: As per HPI. Denies: Bruising, Change in color, Change in hair/ nails, Lesions, Pruritus, Rash Neurological: Reports: As per HPI. Denies: Abnormal gait, Confusion, Headache, Numbness, Paresthesias, Seizure, Tingling, Tremors, Vertigo, Weakness Psychiatric: Reports: As per HPI. Denies: Anxiety, Auditory hallucinations, Depression, Homicidal thoughts, Suicidal thoughts, Visual hallucinations Hematological/Lymphatic: Reports: As per HPI. Denies: Anemia, Blood Clots, Easy bleeding, Easy bruising, Swollen glands Past Medical History - SOCIAL HISTORY Smoking Status: Former smoker Alcohol Use: Rare Drug Use: None - RESPIRATORY Hx Respiratory Disorders: Yes Comment:: current smoker - CARDIOVASCULAR Hx Cardio Disorders: Yes - NEURO Hx Neuro Disorders: Yes Hx Neuropathy: Yes Comment:: viral meningitis - GI Hx GI Disorders: Yes Hx Abdominal Pain: Yes Hx Nausea/Vomiting: Yes - Hx Genitourinary Disorders: No Comment:: hystectomy - ENDOCRINE Hx Endocrine Disorders: Yes - MUSCULOSKELETAL Hx Musculoskeletal Disorders: Yes Hx Arthritis: Yes (R.A) - PSYCH Hx Psych Problems: Yes Hx Depression: Yes - HEMATOLOGY/ONCOLOGY Hx Hematology/Oncology Disorders: Yes Hx Bruising: Yes (after Remicade inf) Family Medical History Any Significant Family History?: Yes Family Hx Comment (NOT TO BE USED IN PLACE OF ITEMS BELOW): son- had colon polyps age 2. father- hx colon polyps. mother/aunts-diverticulitis Hx Cancer: Grandparents *Cancer Comment: Grandmother/uncle-colon cancer Physical Exam - General General Appearance: Alert, Oriented x3, Cooperative, Mild distress - Head Head exam: Normal inspection - Eye Eye exam: Normal appearance, PERRL Pupils: Normal accommodation - ENT ENT exam: Normal exam, Mucous membranes moist, Normal external ear exam, Normal orophraynx, TM's normal bilaterally Ear exam: Normal external inspection. negative: External canal tenderness Nasal Exam: Normal inspection. negative: Discharge, Sinus tenderness Mouth exam: Normal external inspection, Tongue normal Teeth exam: Normal inspection. negative: Dental caries Throat exam: Normal inspection. negative: Tonsillar erythema, Tonsillar exudate - Neck Neck exam: Normal inspection, Full ROM. negative: Tenderness - Respiratory Respiratory exam: Normal lung sounds bilaterally. negative: Respiratory distress - Cardiovascular Cardiovascular Exam: Regular rate, Normal rhythm, Normal heart sounds - GI/Abdominal GI/Abdominal exam: Soft, Normal bowel sounds. negative: Tenderness - Rectal Rectal exam: Deferred - exam: Deferred - Extremities Extremities exam: Normal inspection, Full ROM, Normal capillary refill. negative: Tenderness - Back Back exam: Reports: Normal inspection, Full ROM. Denies: Muscle spasm, Rash noted, Tenderness - Neurological Neurological exam: Alert, Normal gait, Oriented X3, Reflexes normal - Psychiatric Psychiatric exam: Normal affect, Normal mood - Skin Skin exam: Dry, Intact, Normal color, Warm Course Vital Signs 10/13/17 13:08 Temperature 97.7 F Pulse Rate 54 L Respiratory 18 Rate Blood Pressure 142/101 Pulse Ox 100 - Reevaluation(s) Reevaluation #1: feeling better 10/13/17 16:34 Reevaluation #2: discussed case with Brandy and patient is excepted to Dr. Clay's service. We discussed antibiotics and will start unasyn 3 gm every 6 hours 10/13/17 18:19 Medical Decision Making - Lab Data Result diagrams: 10/13/17 13:50 10/13/17 13:50 Disposition Clinical Impression: Colitis, Narcotic drug use Abdominal pain Qualifiers: Abdominal location: generalized Qualified Code(s): R10.84 - Generalized abdominal pain Vomiting Qualifiers: Vomiting type: unspecified Vomiting Intractability: non-intractable Nausea presence: with nausea Qualified Code(s): R11.2 - Nausea with vomiting, unspecified Disposition: Home, Self-Care Condition: (1) Good Instructions: Colitis (ED) Additional Instructions: clear liquids for 12 hours follow up with primary DrElieser in 1-2 days Prescriptions: Hyoscyamine Sulfate [Levsin-Sl] 0.125 mg SL Q6HR #20 tab.subl Forms: Patient Portal Access Time of Disposition: 18:21 Quality - Quality Measures Quality Measures: N/A - Blood Pressure Screening Does Patient Have Any of the Following: No Blood Pressure Classification: Hypertensive Reading Systolic Measurement: 142 Diastolic Measurement: 101 Screening for High Blood Pressure: < First Hypertensive BP, F/U Documented > [ G8950] First Hypertensive Follow-up Interventions: Referral to alternative/primary care provider.
[2017-10-13 13:56] LABS: HEMATOCRIT 47.4 % (35.0-47.0); HEMOGLOBIN 17.3 gm/dl (11.6-16.0); MEAN CELL VOLUME 88.1 fl (81-97); MEAN CORPUSCULAR HGB CONC 36.5 g/dl (32-36); PLATELET COUNT 349 K/uL (130-400); RED BLOOD COUNT 5.38 M/uL (3.80-5.40); RED CELL DISTRIBUTION WIDTH 12.3 % (11.5-14.5); WHITE BLOOD COUNT W/O DIFF 19.4 K/uL (4.2-12.2)
[2017-10-13 13:57] LABS: MEAN CORPUSCULAR HEMOGLOBIN 32.1 pg (27-33)
[2017-10-13 14:05] LABS: PLATELET ESTIMATE NORMAL (NORMAL)
[2017-10-13 14:06] LABS: BLOOD UREA NITROGEN 15 mg/dL (6-20); CREATININE 0.6 mg/dL (0.5-0.9); EST GLOMERULAR FILTRATION RATE > 60 mL/min
[2017-10-13 14:07] LABS: TOTAL PROTEIN 8.7 g/dL (6.6-8.7)
[2017-10-13 14:09] LABS: GLUCOSE,RANDOM 121 mg/dL (74-109)
[2017-10-13 14:11] LABS: ALT/SGPT 13 U/L (<33)
[2017-10-13 14:12] LABS: ALBUMIN 5.5 g/dL (4.0-5.0); ALKALINE PHOSPHATASE 79 U/L (35-104); AST/SGOT 18 U/L (10.0-35.0); BILIRUBIN,DIRECT < 0.2 mg/dL (0-0.3); LIPASE 49 U/L (13-60)
[2017-10-13] MEDS ORDERED: DICYCLOMINE HCL 10 MG/ML AMPUL IM ONE (15:47)
[2017-10-13] MEDS ORDERED: 0.9 % SODIUM CHLORIDE 1000ML 1,000 ML IV ONE (15:48)
[2017-10-13] MEDS ORDERED: ONDANSETRON 4 MG ODT TABLET PO PRN (18:27)
[2017-10-13] MEDS ORDERED: ACETAMINOPHEN 325 MG TAB PO SCH (18:30)
[2017-10-13] MEDS: 0.9 % SODIUM CHLORIDE 1000ML 3,000 ML IV PRN (20:48)
[2017-10-13] MEDS: AMPICILLIN SODIUM/SULBACTAM NA 3 G in 0.9 % SODIUM CHLORIDE 100ML 100 ML IVPB SCH (21:14)
[2017-10-13] MEDS ORDERED: MORPHINE SULFATE 30MG TABLET.ER PO SCH (22:00)
[2017-10-13] MEDS ORDERED: OXYMORPHONE HCL 10 MG PO SCH ×2 (22:00)
[2017-10-13] MEDS: CITALOPRAM 20 MG TABLET PO SCH (22:14)
[2017-10-13] MEDS: HYDROMORPHONE HCL 2 MG/ML VIAL IV PRN (23:44)
[2017-10-14] MEDS: AMPICILLIN SODIUM/SULBACTAM NA 3 G in 0.9 % SODIUM CHLORIDE 100ML 100 ML IVPB SCH ×4 (00:52→18:00)
[2017-10-14] MEDS: HYDROMORPHONE HCL 2 MG/ML VIAL IV PRN ×5 (03:46→21:30)
[2017-10-14 06:16] LABS: BASO % 0.2 % (0-6); EOS % 0.3 % (0-6); GRAN % 55.5 % (47-80); HEMATOCRIT 43.1 % (35.0-47.0); HEMOGLOBIN 14.8 gm/dl (11.6-16.0); LYMPH % 36.4 % (16-45); MEAN CELL VOLUME 91.7 fl (81-97); MEAN CORPUSCULAR HEMOGLOBIN 31.5 pg (27-33); MEAN CORPUSCULAR HGB CONC 34.3 g/dl (32-36); MEAN PLATELET VOLUME 10.3 fl (7.4-10.4); MONO % 7.6 % (0-9); PLATELET COUNT 278 K/uL (130-400); RED CELL DISTRIBUTION WIDTH 12.6 % (11.5-14.5); WHITE BLOOD COUNT W/O DIFF 11.5 K/uL (4.2-12.2)
[2017-10-14 06:45] LABS: BLOOD UREA NITROGEN 15 mg/dL (6-20); CREATININE 0.6 mg/dL (0.5-0.9); EST GLOMERULAR FILTRATION RATE > 60 mL/min; GLUCOSE,RANDOM 94 mg/dL (74-109)
--- NOTE | 2017-10-14 07:18 | CT SCAN REPORT ---
EXAM: CT OF THE ABDOMEN AND PELVIS WITHOUT CONTRAST HISTORY: VOMITING AND DIARRHEA. TECHNIQUE: Sequential axial images were obtained from the diaphragms through the ischiorectal fossa without intravenous or oral contrast administration. FINDINGS: The visualized lung bases appear normal. The nonopacified liver, gallbladder, pancreas, and spleen appear normal. The adrenal glands and kidneys appear normal. No CT findings suggestive of obstructive uropathy. Small phleboliths within the gonadal veins. The small bowel appears normal. The appendix is visualized and appears normal. There is a tiny appendicolith distally. No inflammatory change. Colonic diverticulosis without evidence of diverticulitis. The urinary bladder appears normal. The osseous structures are normal. IMPRESSION: NO ACUTE ABDOMINAL OR PELVIC DISEASE PROCESS IS APPRECIATED. JOB NUMBER: [id number] [facility]
[2017-10-14] MEDS ORDERED: CLONAZEPAM 1MG TABLET PO PRN (08:40)
--- NOTE | 2017-10-14 10:02 | History & Physical ---
History of Present Illness - Date of Service Date of Service for History & Physical: 10/14/17 - History of Present Illness Admitting Diagnosis: vomiting. diarrhea. collitis History of Present Illness: Mrs. Brunson is a 47 year-old female who presented to the ED on 10/13/17 with complaint of abdominal pain, vomiting, and diarrhea for 1 day. She is being managed by a pain specialist for chronic pain due to RA, and she has been unable to keep her medication down due to nausea/vomiting. She has had several work-ups by GI over the last few months and was found to have colitis. She described the RUQ abdominal pain as "cramping". She denies change in diet, but states she did eat [place]haric food 3 days ago and both she and her have had episodes of diarrhea since. She does complain of overall fatigue, RUQ abdominal pain, nausea, vomiting, diarrhea, and chills. 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 In the ED, her vital signs were stable. Her labs revealed a WBC of 19.4. Abdominal/pelvic CT was negative for acute process- small apendicolith distally , no inflammatory changes, and colonic diverticulosis without evidence of diverticulitis. Nausea remained uncontrolled in the ED, and due to elevated WBC , pt. was admitted for observation with IV abx and IVF. 10/14/17 1000: Pt. is resting in bed. She reports feeling slightly improved. She states that her diarrhea has slowed down, but she is still nauseated and experiencing RUQ abdominal pain- she is tender to palpation. She is tolerating IV dilaudid 1mg q4h in place of her home medications for pain. WBC decreased to 11.5 this morning. She does remain febrile at 100.3F since 0400 today. Will plan to continue unasyn 3gm q6h, IVF with NS @ 125/hr. PCP: Dr. Clay Rheumatology: Dr. Herrera Pain Management: Dr. Diaz GI: Dr. Sandoval Travel Screening - Travel/Exposure Within Last 30 Days Have you traveled within the last 30 days?: No - Travel/Exposure Within Last Year Have you traveled outside the [place] in the last year?: No - Additonal Travel Details Have you been exposed to anyone with a communicable illness?: No - Travel Symptoms Symptom Screening: Headache, Weakness, Diarrhea, Vomiting, Stomach Pain, Lack of Appetite Review of Systems Constitutional: Reports: Chills, Fever, Malaise. Denies: Night sweats, Weakness , Weight change Eyes: Reports: As per HPI. Denies: Eye discharge, Eye pain, Photophobia, Vision change ENT: Reports: As per HPI. Denies: Congestion, Dental pain, Ear pain, Epistaxis , Hearing loss, Throat pain Respiratory: Reports: As per HPI. Denies: Cough, Dyspnea, Hemoptysis, Stridor, Wheezes Cardiovascular: Reports: As per HPI. Denies: Arrhythmia, Chest pain, Dyspnea on exertion, Edema, Murmurs, Orthopnea, Palpitations, Paroxysmal nocturnal dyspnea, Rheumatic Fever, Syncope Endocrine: Reports: Fatigue. Denies: Heat or cold intolerance, Polydipsia, Polyuria Gastrointestinal: Reports: As per HPI, Abdominal pain, Diarrhea, Vomiting. Denies: Constipation, Hematemesis, Hematochezia, Melena, Nausea Genitourinary: Reports: As per HPI. Denies: Abnormal menses, Discharge, Dyspareunia, Dysuria, Frequency, Hematuria, Incontinence, Retention, Urgency Musculoskeletal: Reports: As per HPI. Denies: Arthralgia, Back pain, Gout, Joint swelling, Myalgia, Neck pain Skin: Reports: As per HPI. Denies: Bruising, Change in color, Change in hair/ nails, Lesions, Pruritus, Rash Neurological: Reports: As per HPI. Denies: Abnormal gait, Confusion, Headache, Numbness, Paresthesias, Seizure, Tingling, Tremors, Vertigo, Weakness Psychiatric: Reports: As per HPI. Denies: Anxiety, Auditory hallucinations, Depression, Homicidal thoughts, Suicidal thoughts, Visual hallucinations Hematological/Lymphatic: Reports: As per HPI. Denies: Anemia, Blood Clots, Easy bleeding, Easy bruising, Swollen glands Past Medical History - SOCIAL HISTORY Smoking Status: Former smoker - RESPIRATORY Hx Respiratory Disorders: Yes Comment:: current smoker - CARDIOVASCULAR Hx Cardio Disorders: Yes Hx Deep Vein Thrombosis: No Hx Edema: Yes (ankles/hands-arthritis) - NEURO Hx Neuro Disorders: Yes Hx Neuropathy: Yes Comment:: viral meningitis - GI Hx GI Disorders: Yes Hx Abdominal Pain: Yes Hx Nausea/Vomiting: Yes - Hx Genitourinary Disorders: No Comment:: hystectomy - ENDOCRINE Hx Endocrine Disorders: Yes - MUSCULOSKELETAL Hx Musculoskeletal Disorders: Yes Hx Arthritis: Yes (R.A) - PSYCH Hx Psych Problems: Yes Hx Depression: Yes - HEMATOLOGY/ONCOLOGY Hx Hematology/Oncology Disorders: Yes Hx Bruising: Yes (after Remicade inf) Family Medical History Any Significant Family History?: Yes Family Hx Comment (NOT TO BE USED IN PLACE OF ITEMS BELOW): son- had colon polyps age 2. father- hx colon polyps. mother/aunts-diverticulitis Hx Cancer: Grandparents *Cancer Comment: Grandmother/uncle-colon cancer H&P Meds/Allergies - Allergies Allergies: Allergies Allergy/AdvReac Type Severity Reaction Status Date / Time etanercept [From Enbrel] Allergy Severe HIVES Verified 10/13/17 13:04 Echinacea [ECHINACEA] Allergy Unknown SWELLING Verified 10/13/17 13:04 OF THE TONGUE hydroxychloroquine sulfate Allergy Unknown DIARRHEA Verified 10/13/17 13:04 [From PLAQUENIL] hyoscyamine sulfate Allergy Unknown SKIN Verified 10/13/17 13:04 [From LEVSIN] IRRITATION ketorolac tromethamine Allergy Unknown HIVES Verified 10/13/17 13:04 [From TORADOL] methotrexate [METHOTREXATE] Allergy Unknown HYPERSENSIT Verified 10/13/17 13:04 IVITY Qiarzph-Wio-Uia Reductase Allergy Unknown HIVES Verified 10/13/17 13:04 Inhibitor [[id number] REDUCTASE INHIBITOR] Sulfa (Sulfonamide Allergy Unknown HIVES Verified 10/13/17 13:04 Antibiotics) [SULFA(SULFONAMIDE ANTIBIOTICS)] niacin Allergy HIVES Verified 10/13/17 13:04 - Home Medications Home Medications Medication Instructions Recorded Confirmed Last Taken Citalopram Hydrobromide 10 mg PO QHS 10/13/17 10/14/17 10/12/17 [Citalopram HBr] Clonazepam 0.5 mg PO Q8H PRN 10/14/17 10/14/17 Unknown Leflunomide 10 mg PO MOTUWETHFR 10/14/17 10/14/17 Unknown Previous Rx's Medication Instructions Recorded Ondansetron [Zofran Odt] 4 mg PO Q8H PRN #20 tab.rapdis 03/11/17 Hyoscyamine Sulfate [Levsin-Sl] 0.125 mg SL Q6HR #20 tab.subl 10/13/17 - Active Medications Active Medications: Current Medications Citalopram Hydrobromide (Celexa) 10 mg PO QHS [facility] Last Admin: 10/13/17 22:14 Dose: 10 mg Clonazepam (Klonopin) 0.5 mg PO Q8H PRN PRN Reason: ANXIETY Hydromorphone HCl (Dilaudid) 1 mg IV Q4H PRN PRN Reason: ANALGESIA Last Admin: 10/14/17 08:20 Dose: 1 mg Ampicillin Sodium/Sulbactam (Sodium 3 g/ Sodium Chloride) 100 mls @ 200 mls/hr IVPB Q6H [facility] Last Infusion: 10/14/17 06:37 Dose: Infused Sodium Chloride () 3,000 mls @ 125 mls/hr IV .Q24H PRN PRN Reason: LARGE VOLUME IV Last Admin: 10/13/17 20:48 Dose: 125 mls/hr Multivitamins/Minerals (Centrum) 1 tab PO DAILY [facility] Ondansetron HCl (Zofran Odt) 4 mg PO Q8H PRN PRN Reason: NAUSEA Pantoprazole Sodium (Protonix Iv) 40 mg IV DAILY [facility] Patient Own Med: (Leflunomide 10 Mg) 1 each PO MoTuWeThFr [facility] Physical Exam - Vital Signs Vital Signs: Vital Signs - Last 24 Hrs Temp Pulse Pulse Resp BP BP Pulse Ox 10/14/17 09:34 100.3 F H 92/57 10/14/17 04:00 100.3 F H 62 18 92/57 94 L 10/14/17 01:06 100.3 F H 84 18 96/61 95 10/13/17 21:00 82 18 10/13/17 20:00 99 F 82 18 134/67 97 10/13/17 18:48 98.3 F 63 20 156/110 99 10/13/17 15:11 65 20 145/105 98 10/13/17 13:08 97.7 F 54 L 18 142/101 100 - General General Appearance: Alert, Oriented x3, Cooperative, No acute distress - Head Head exam: Normal inspection - Eye Eye exam: Normal appearance, PERRL Pupils: Normal accommodation - ENT ENT exam: Normal exam, Mucous membranes moist, Normal external ear exam, Normal orophraynx, TM's normal bilaterally Ear exam: Normal external inspection. negative: External canal tenderness Nasal Exam: Normal inspection. negative: Discharge, Sinus tenderness Mouth exam: Normal external inspection, Tongue normal Teeth exam: Normal inspection. negative: Dental caries Throat exam: Normal inspection. negative: Tonsillar erythema, Tonsillar exudate - Neck Neck exam: Normal inspection, Full ROM. negative: Tenderness - Respiratory Respiratory exam: Normal lung sounds bilaterally. negative: Respiratory distress - Cardiovascular Cardiovascular Exam: Regular rate, Normal rhythm, Normal heart sounds - GI/Abdominal GI/Abdominal exam: Soft, Normal bowel sounds, Tenderness (Right upper quadrant) - Rectal Rectal exam: Deferred - exam: Deferred - Extremities Extremities exam: Normal inspection, Full ROM, Normal capillary refill. negative: Tenderness - Back Back exam: Reports: Normal inspection, Full ROM. Denies: Muscle spasm, Rash noted, Tenderness - Neurological Neurological exam: Alert, Normal gait, Oriented X3, Reflexes normal - Psychiatric Psychiatric exam: Normal affect, Normal mood - Skin Skin exam: Dry, Intact, Normal color, Warm Results - Labs Result Diagrams: 10/14/17 06:10 10/14/17 06:10 Labs Last 24 Hours: Laboratory Results - last 24 hr 10/13/17 10/13/17 10/14/17 13:50 13:50 06:10 WBC 19.4 H 11.5 RBC 5.38 4.70 Hgb 17.3 H 14.8 Hct 47.4 H 43.1 MCV 88.1 91.7 MCH 32.1 31.5 MCHC 36.5 H 34.3 RDW 12.3 12.6 Plt Count 349 278 MPV 11.0 H 10.3 Gran % 55.5 Neutrophils % 80.0 Lymphocytes % 36.4 Monocytes % 7.6 Eosinophils % Not Reportable 0.3 Basophils % Not Reportable 0.2 Lymphocytes 16.0 Monocytes 4.0 Platelet Estimate Normal Sodium 140 Potassium 3.8 Chloride 97 L Carbon Dioxide 20.0 L Anion Gap 23.0 H BUN 15 Creatinine 0.6 Estimated GFR > 60 Random Glucose 121 H Calcium 10.6 H Total Bilirubin 0.80 Direct Bilirubin < 0.2 AST 18 ALT 13 Alkaline Phosphatase 79 Total Protein 8.7 Albumin 5.5 H Lipase 49 10/14/17 06:10 WBC RBC Hgb Hct MCV MCH MCHC RDW Plt Count MPV Gran % Neutrophils % Lymphocytes % Monocytes % Eosinophils % Basophils % Lymphocytes Monocytes Platelet Estimate Sodium 142 Potassium 4.0 Chloride 102 Carbon Dioxide 27.0 Anion Gap 13.0 BUN 15 Creatinine 0.6 Estimated GFR > 60 Random Glucose 94 Calcium 9.3 Total Bilirubin Direct Bilirubin AST ALT Alkaline Phosphatase Total Protein Albumin Lipase - Imaging and Cardiology CT scan - abdomen Status: Report reviewed (No acute abdominal or pelvic processes seen) VTE H&P Assessment - Risk for VTE Risk for VTE: Yes Risk Level: Low Risk Assessment Date: 10/14/17 Risk Assessment Time: 10:01 VTE Orders Placed or Will Be Placed: Yes Plan - Detailed Diagnosis and Plan (1) Abdominal pain Current Visit: Yes Status: Acute Qualifiers: Abdominal location: generalized Qualified Code(s): R10.84 - Generalized abdominal pain Base Code: R10.9 - UNSPECIFIED ABDOMINAL PAIN Comment: 10/14/17: -Pt. presented to ED on 10/13/17 with c/o RUQ abdominal pain -Abd CT neg for acute process, WBC was 19.4, Unasyn 3gm q6h ordered -Plan to manage pain with 1mg dilaudid IV q4h during admission -Clear liquids, NS @ 125ml/hr, antiemetics -Will continue gut rest and hydration, IV abx, antiemetics, pain management, will consider transfer if no improvement for GI consult (2) Vomiting Current Visit: Yes Status: Acute Qualifiers: Vomiting type: unspecified Vomiting Intractability: non-intractable Nausea presence: with nausea Qualified Code(s): R11.2 - Nausea with vomiting, unspecified Base Code: R11.10 - VOMITING, UNSPECIFIED Comment: 10/14/17: -Vomiting has improved since admission -Will continue IVF with NS, IV antiemetics, clear liquid diet (3) Narcotic drug use Current Visit: Yes Status: Acute Base Code: F11.90 - OPIOID USE, UNSPECIFIED , UNCOMPLICATED Comment: 10/14/17: -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 has been unablet to tolerate home meds d/t nausea/vomiting (4) DVT prophylaxis Current Visit: No Status: Acute Base Code: [id number] - Comment: 10/14/17: -Lovenox 40mg SC daily during hospitalization (5) Full code status Current Visit: Yes Status: Acute Base Code: Z78.9 - OTHER SPECIFIED HEALTH STATUS Comment: 10/14/17: -Pt. is a full code status
[2017-10-14] MEDS: PANTOPRAZOLE SODIUM IV 40 MG VIAL IV SCH (10:58)
[2017-10-14] MEDS: MULTIVITAMINS/MINERALS TABLET PO SCH (10:58)
[2017-10-14] MEDS: LEFLUNOMIDE 10 MG PO SCH (12:32)
[2017-10-14] MEDS: 0.9 % SODIUM CHLORIDE 1000ML 3,000 ML IV PRN (15:30)
[2017-10-14 18:21] LABS: URINE APPEARANCE CLEAR; URINE BILIRUBIN NEGATIVE (NEGATIVE); URINE BLOOD NEGATIVE (NEGATIVE); URINE COLOR YELLOW; URINE GLUCOSE (UA) NEGATIVE (NEGATIVE); URINE KETONE TRACE (NEGATIVE); URINE LEUKOCYTE ESTERASE NEGATIVE (NEGATIVE); URINE NITRITE NEGATIVE (NEGATIVE); URINE PROTEIN NEGATIVE (NEGATIVE); URINE UROBILINOGEN 0.2 E.U./dL (0.20 - 1.00)
[2017-10-14] MEDS: CITALOPRAM 20 MG TABLET PO SCH (21:31)
[2017-10-15] MEDS: AMPICILLIN SODIUM/SULBACTAM NA 3 G in 0.9 % SODIUM CHLORIDE 100ML 100 ML IVPB SCH ×2 (00:02→05:51)
[2017-10-15] MEDS: HYDROMORPHONE HCL 2 MG/ML VIAL IV PRN ×3 (01:26→09:51)
[2017-10-15 06:19] LABS: BASO % 0.6 % (0-6); EOS % 3.4 % (0-6); GRAN % 39.1 % (47-80); HEMATOCRIT 36.1 % (35.0-47.0); HEMOGLOBIN 12.2 gm/dl (11.6-16.0); LYMPH % 49.3 % (16-45); MEAN CELL VOLUME 92.3 fl (81-97); MEAN CORPUSCULAR HEMOGLOBIN 31.2 pg (27-33); MEAN CORPUSCULAR HGB CONC 33.8 g/dl (32-36); MEAN PLATELET VOLUME 9.9 fl (7.4-10.4); MONO % 7.6 % (0-9); PLATELET COUNT 199 K/uL (130-400); RED BLOOD COUNT 3.91 M/uL (3.80-5.40); RED CELL DISTRIBUTION WIDTH 11.9 % (11.5-14.5); WHITE BLOOD COUNT W/O DIFF 6.2 K/uL (4.2-12.2)
[2017-10-15 06:40] LABS: ALBUMIN 3.9 g/dL (4.0-5.0); ALKALINE PHOSPHATASE 51 U/L (35-104); ALT/SGPT 10 U/L (<33); AST/SGOT 15 U/L (10.0-35.0); BLOOD UREA NITROGEN 8 mg/dL (6-20); CREATININE 0.4 mg/dL (0.5-0.9); EST GLOMERULAR FILTRATION RATE > 60 mL/min; GLUCOSE,RANDOM 87 mg/dL (74-109); TOTAL PROTEIN 5.9 g/dL (6.6-8.7)
[2017-10-15] MEDS: LEFLUNOMIDE 10 MG PO SCH (09:48)
[2017-10-15] MEDS: PANTOPRAZOLE SODIUM IV 40 MG VIAL IV SCH (09:48)
[2017-10-15] MEDS: MULTIVITAMINS/MINERALS TABLET PO SCH (09:48)
--- NOTE | 2017-10-15 10:04 | Discharge Summary ---
Providers Discharge Summary Date: 10/15/17 Date of admission: 10/13/17 19:21 Expected Date of Discharge: 10/15/17 Attending physician: ELSIE CLAY Primary care physician: ELSIE CLAY Physical Exam - Vital Signs Vital Signs: Vital Signs - Last 24 Hrs Temp Pulse Resp BP BP Pulse Ox 10/15/17 08:40 15 10/15/17 06:00 98.8 F 61 15 140/90 95 10/15/17 02:00 97.9 F 67 16 143/74 93 L 10/14/17 21:42 98.0 F 56 L 18 125/90 98 10/14/17 20:32 63 15 10/14/17 18:00 98.5 F 63 15 131/82 100 10/14/17 14:00 98.7 F 67 16 135/83 99 10/14/17 10:00 98.6 F 69 18 118/82 100 - General General Appearance: Alert, Oriented x3, Cooperative, No acute distress - Head Head exam: Normal inspection - Eye Eye exam: Normal appearance, PERRL Pupils: Normal accommodation - ENT ENT exam: Normal exam, Mucous membranes moist, Normal external ear exam, Normal orophraynx, TM's normal bilaterally Ear exam: Normal external inspection. negative: External canal tenderness Nasal Exam: Normal inspection. negative: Discharge, Sinus tenderness Mouth exam: Normal external inspection, Tongue normal Teeth exam: Normal inspection. negative: Dental caries Throat exam: Normal inspection. negative: Tonsillar erythema, Tonsillar exudate - Neck Neck exam: Normal inspection, Full ROM. negative: Tenderness - Respiratory Respiratory exam: Normal lung sounds bilaterally. negative: Respiratory distress - Cardiovascular Cardiovascular Exam: Regular rate, Normal rhythm, Normal heart sounds - GI/Abdominal GI/Abdominal exam: Soft, Normal bowel sounds, Tenderness (Right upper quadrant) - Rectal Rectal exam: Deferred - exam: Deferred - Extremities Extremities exam: Normal inspection, Full ROM, Normal capillary refill. negative: Tenderness - Back Back exam: Reports: Normal inspection, Full ROM. Denies: Muscle spasm, Rash noted, Tenderness - Neurological Neurological exam: Alert, Normal gait, Oriented X3, Reflexes normal - Psychiatric Psychiatric exam: Normal affect, Normal mood - Skin Skin exam: Dry, Intact, Normal color, Warm Hospitalization - Hospitalization Admission Diagnosis: vomiting. diarrhea. collitis - Problem List/Discharge Diagnosis (1) Abdominal pain Current Visit: Yes Status: Acute Discharge Diagnosis: Abdominal location: generalized Qualified Code(s): R10.84 - Generalized abdominal pain Base Code: R10.9 - UNSPECIFIED ABDOMINAL PAIN Comment: 10/15/17: -Pt. presented to ED on 10/13/17 with c/o RUQ abdominal pain -Abd CT neg for acute process, WBC was 19.4, Unasyn 3gm q6h ordered -Pt. is tolerating clear liquids and nausea has subsided. She currently denies abdominal pain. -Will plan to d/c home today and pt. will resume home pain meds (2) Vomiting Current Visit: Yes Status: Acute Discharge Diagnosis: Vomiting type: unspecified Vomiting Intractability: non-intractable Nausea presence: with nausea Qualified Code(s): R11.2 - Nausea with vomiting, unspecified Base Code: R11.10 - VOMITING, UNSPECIFIED Comment: 10/15/17: -Pt. 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 tolerated IV dilaudid during admission, will plan to d/c home today and pt. will resume home meds (4) DVT prophylaxis Current Visit: No Status: Acute Base Code: [id number] - Comment: 10/15/17: -Will not continue dvt prophylaxis with discharge because pt. will return to normal level of activity (5) Full code status Current Visit: Yes Status: Acute Base Code: Z78.9 - OTHER SPECIFIED HEALTH STATUS Comment: 10/15/17: -Pt. is a full code status - Hospitalization Course Disposition: Home, Self-Care Hospital Course: Mrs. Brunson is a 47 year-old female who presented to the ED on 10/13/17 with complaint of abdominal pain, vomiting, and diarrhea for 1 day. She is being managed by a pain specialist for chronic pain due to RA, and she has been unable to keep her medication down due to nausea/vomiting. She has had several work-ups by GI over the last few months and was found to have colitis. She described the RUQ abdominal pain as "cramping". She denies change in diet, but states she did eat [place] food 3 days ago and both she and her have had episodes of diarrhea since. She does complain of overall fatigue, RUQ abdominal pain, nausea, vomiting, diarrhea, and chills. 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 In the ED, her vital signs were stable. Her labs revealed a WBC of 19.4. Abdominal/pelvic CT was negative for acute process- small apendicolith distally , no inflammatory changes, and colonic diverticulosis without evidence of diverticulitis. Nausea remained uncontrolled in the ED, and due to elevated WBC , pt. was admitted for observation with IV abx and IVF. 10/14/17 1000: Pt. is resting in bed. She reports feeling slightly improved. She states that her diarrhea has slowed down, but she is still nauseated and experiencing RUQ abdominal pain- she is tender to palpation. She is tolerating IV dilaudid 1mg q4h in place of her home medications for pain. WBC decreased to 11.5 this morning. She does remain febrile at 100.3F since 0400 today. Will plan to continue unasyn 3gm q6h, IVF with NS @ 125/hr. 10/15/17 0930: Pt. is sitting up in bed, she just got done taking a shower. She states she feels much improved, she presently denies nausea and has not vomited since admission. She is tolerating clear liquids. She states she did have a bout of diarrhea around 3am, but that the frequency has greatly decreased. Labs and vitals remain stable, she has been afebrile since yesterday. Did discuss possible causes of pt's GI symptoms with pt., possible food poisoning, gastroenteritis, possible food allergy/intolerance. Plan to discharge home today, recommended pt. to gradually advance diet as tolerated. Pt. will resume home meds for pain management. PCP: Dr. Clay Rheumatology: Dr. Herrera Pain Management: Dr. Diaz GI: Dr. Sandoval Procedures: Imaging and X-Rays 10/13/17 16:45 ABDOMEN/PELVIS WO CONTRAST [CT] Stat Abnormal Labs: Abnormal Lab Results 10/13/17 10/13/17 10/14/17 Range/Units 13:50 13:50 18:12 WBC 19.4 H (4.2-12.2) K/uL Hgb 17.3 H (11.6-16.0) gm/dl Hct 47.4 H (35.0-47.0) % MCHC 36.5 H (32-36) g/dl MPV 11.0 H (7.4-10.4) fl Gran % (47-80) % Lymphocytes % (16-45) % Chloride 97 L (98-107) mmol/L Carbon Dioxide 20.0 L (22-29) mmol/L Anion Gap 23.0 H (7-16) Creatinine (0.5-0.9) mg/dL Random Glucose 121 H (74-109) mg/dL Calcium 10.6 H (8.6-10.0) mg/dL Total Protein (6.6-8.7) g/dL Albumin 5.5 H (4.0-5.0) g/dL Albumin/Globulin Ratio (1.1-1.8) Urine Ketones Trace H (NEGATIVE) 10/15/17 10/15/17 Range/Units 06:12 06:12 WBC (4.2-12.2) K/uL Hgb (11.6-16.0) gm/dl Hct (35.0-47.0) % MCHC (32-36) g/dl MPV (7.4-10.4) fl Gran % 39.1 L (47-80) % Lymphocytes % 49.3 H (16-45) % Chloride (98-107) mmol/L Carbon Dioxide (22-29) mmol/L Anion Gap (7-16) Creatinine 0.4 L (0.5-0.9) mg/dL Random Glucose (74-109) mg/dL Calcium 8.4 L (8.6-10.0) mg/dL Total Protein 5.9 L (6.6-8.7) g/dL Albumin 3.9 L (4.0-5.0) g/dL Albumin/Globulin Ratio 2.0 H (1.1-1.8) Urine Ketones (NEGATIVE) Condition at Discharge: (2) Stable VTE Discharge VTE Reason For No Overlap Therapy: Not Indicated (Mobility not impaired) Discharge Medications - Discharge Medications Home Medications: Ambulatory Orders Oxymorphone HCl [Opana] 10 mg PO 5XD 06/21/14 [Last Taken 10/12/17] Baclofen 20 mg PO QID PRN 30 Days #30 10/19/16 [Last Taken 10/12/17] Acetaminophen [Tylenol Arthritis] 650 mg PO Q4H PRN tab 12/15/16 [Last Taken ] Morphine Sulfate 30 mg PO Q12H 03/11/17 [Last Taken 10/12/17] Ondansetron [Zofran Odt] 4 mg PO Q8H PRN #20 tab.rapdis 03/11/17 [Last Taken ] Citalopram Hydrobromide [Citalopram HBr] 10 mg PO QHS 10/13/17 [Last Taken 10/12] Clonazepam 0.5 mg PO Q8H PRN 10/14/17 [Last Taken Unknown] Leflunomide 10 mg PO MOTUWETHFR 10/14/17 [Last Taken Unknown] Discharge Plan - Discharge Instructions Activity at Discharge: Increase Activity as Tolerated Diet at Discharge: Advance to Usual Diet Instructions: Colitis (ED) Additional Instructions: Clear liquids for 12 hours, gradually advance diet as tolerated Follow up with Dr. Clay in 3-5 days Call or return to the ED if your symptoms worsen, or if you notice any blood in your stool Quality Measures - Quality Measures Quality Measures: Documentation of Current Medications in Medical Record, Screening for High Blood Pressure and F/U Documented - Current Medications Quality Measure: Measure #130: Documentation of Current Medications Documentation of Current Medications: <Current Medications Documented/Reviewed> [G8427] - Blood Pressure Screening Quality Measure: Screening for High Blood Pressure and Follow-Up Documented Does Patient Have Any of the Following: No Blood Pressure Classification: Normal BP Reading Systolic Measurement: 92 Diastolic Measurement: 57 Screening for High Blood Pressure: < Normal BP, F/U Not Required > [G8783] - Elder Abuse Suspicion Index EASI Reference Information: Nigel LAZAR, Flower C, Danielle D, Sidney James.Development and validation of a tool to assist physicians identification of elder abuse: The Elder Abuse Suspicion Index (EASI ). Journal of Elder Abuse and Neglect, 2008; 20 (3): 276-300.
== END 2017-10-15 10:35 | disposition home or self-care (01) ==
LOC: ER 12:53 → MEDSURG 19:21
PROVIDERS: ADMIT Internal Medicine; ATTEND Internal Medicine
DX: K52.9 Noninfective gastroenteritis and colitis, unspecified (principal); R11.2 Nausea with vomiting, unspecified; R19.7 Diarrhea, unspecified; F19.90 Other psychoactive substance use, unspecified, uncomplicated; M06.9 Rheumatoid arthritis, unspecified; G62.9 Polyneuropathy, unspecified; F17.210 Nicotine dependence, cigarettes, uncomplicated
CPT/HCPCS: 74176; 80048; 80053; 80076; 81003; 83690; 85025; 85027; 96365; 96374; 96376; 99217; 99220; 99285; C9113; J0295; J2550; J7030

== ENCOUNTER 2017-11-11 10:39 | Emergency (ER) | payer MEDICARE, SELFPAY ==
[2017-11-11] MEDS ORDERED: 0.9 % SODIUM CHLORIDE 1,000 ML BAG IV ONE (11:06)
[2017-11-11] MEDS ORDERED: PROMETHAZINE HCL 12.5 MG in 0.9 % SODIUM CHLORIDE 100ML 100 ML IVPB ONE ×2 (11:16→12:27)
[2017-11-11 11:21] LABS: BASO % 0.4 % (0-6); EOS % 0.6 % (0-6); GRAN % 54.6 % (47-80); HEMATOCRIT 44.5 % (35.0-47.0); HEMOGLOBIN 15.7 gm/dl (11.6-16.0); LYMPH % 38.4 % (16-45); MEAN CELL VOLUME 90.8 fl (81-97); MEAN CORPUSCULAR HGB CONC 35.3 g/dl (32-36); PLATELET COUNT 290 K/uL (130-400); RED CELL DISTRIBUTION WIDTH 12.2 % (11.5-14.5)
[2017-11-11 11:31] LABS: BLOOD UREA NITROGEN 12 mg/dL (6-20); CREATININE 0.6 mg/dL (0.5-0.9); EST GLOMERULAR FILTRATION RATE > 60 mL/min; TOTAL PROTEIN 7.8 g/dL (6.6-8.7)
[2017-11-11 11:34] LABS: GLUCOSE,RANDOM 88 mg/dL (74-109)
[2017-11-11 11:36] LABS: ALB/GLOB RATIO 1.9 (1.1-1.8); ALBUMIN 5.1 g/dL (4.0-5.0); ALKALINE PHOSPHATASE 60 U/L (35-104); ALT/SGPT 11 U/L (<33); AST/SGOT 14 U/L (10.0-35.0)
[2017-11-11 11:37] LABS: LIPASE 79 U/L (13-60)
[2017-11-11 11:41] LABS: CRYPTOSPORIDIUM PARVUM ANTIGEN NOT DETECTED (NOT DETECT); GIARDIA LAMBLIA ANTIGEN NOT DETECTED (NOT DETECT); ROTOVIRUS NOT DETECTED (NOT DETECT)
--- NOTE | 2017-11-11 12:25 | Emergency Department Record ---
History of Present Illness - General Chief Complaint: Abdominal Pain Stated Complaint: ABDOMINAL PAIN/DIAREA Time Seen by Provider: 11/11/17 10:52 Source: Patient Mode of Arrival: Ambulatory Limitations: No limitations - History of Present Illness Initial Comments: pt has nausea and abd cramping similar to what she has been dealing with for years. she has been evaluated by a GI doctor and has recently been hospitalized. Onset/Timin -: Days(s) Location: Diffuse, RUQ, RLQ Radiation: None Severity: Moderate Severity scale (1-10): 8 Quality: Cramping, Sharp Improves With: Nothing Worsens With: Nothing Associated Symptoms: Diarrhea - Related Data Patient : No Allergies Allergy/AdvReac Type Severity Reaction Status Date / Time etanercept [From Enbrel] Allergy Severe HIVES Verified 11/11/17 10:47 Echinacea [ECHINACEA] Allergy Unknown SWELLING Verified 11/11/17 10:47 OF THE TONGUE hydroxychloroquine sulfate Allergy Unknown DIARRHEA Verified 11/11/17 10:47 [From PLAQUENIL] hyoscyamine sulfate Allergy Unknown SKIN Verified 11/11/17 10:47 [From LEVSIN] IRRITATION ketorolac tromethamine Allergy Unknown HIVES Verified 11/11/17 10:47 [From TORADOL] methotrexate [METHOTREXATE] Allergy Unknown HYPERSENSIT Verified 11/11/17 10:47 IVITY Hisbles-Bev-Ebl Reductase Allergy Unknown HIVES Verified 11/11/17 10:47 Inhibitor [PVJUVAI-TUL-QBO REDUCTASE INHIBITOR] Sulfa (Sulfonamide Allergy Unknown HIVES Verified 11/11/17 10:47 Antibiotics) [SULFA(SULFONAMIDE ANTIBIOTICS)] niacin Allergy HIVES Verified 11/11/17 10:47 Travel Screening - Travel/Exposure Within Last 30 Days Have you traveled within the last 30 days?: No - Travel/Exposure Within Last Year Have you traveled outside the [place] in the last year?: No - Additonal Travel Details Have you been exposed to anyone with a communicable illness?: No - Travel Symptoms Symptom Screening: None Review of Systems Reviewed: No additional complaints except as noted below Constitutional: Reports: As per HPI. Denies: Chills, Fever, Malaise, Night sweats, Weakness, Weight change Eyes: Reports: As per HPI. Denies: Eye discharge, Eye pain, Photophobia, Vision change ENT: Reports: As per HPI. Denies: Congestion, Dental pain, Ear pain, Epistaxis , Hearing loss, Throat pain Respiratory: Reports: As per HPI. Denies: Cough, Dyspnea, Hemoptysis, Stridor, Wheezes Cardiovascular: Reports: As per HPI. Denies: Arrhythmia, Chest pain, Dyspnea on exertion, Edema, Murmurs, Orthopnea, Palpitations, Paroxysmal nocturnal dyspnea, Rheumatic Fever, Syncope Endocrine: Reports: As per HPI. Denies: Fatigue, Heat or cold intolerance, Polydipsia, Polyuria Gastrointestinal: Reports: As per HPI, Diarrhea, Nausea. Denies: Abdominal pain , Constipation, Hematemesis, Hematochezia, Melena, Vomiting Genitourinary: Reports: As per HPI. Denies: Abnormal menses, Discharge, Dyspareunia, Dysuria, Frequency, Hematuria, Incontinence, Retention, Urgency Musculoskeletal: Reports: As per HPI. Denies: Arthralgia, Back pain, Gout, Joint swelling, Myalgia, Neck pain Skin: Reports: As per HPI. Denies: Bruising, Change in color, Change in hair/ nails, Lesions, Pruritus, Rash Neurological: Reports: As per HPI. Denies: Abnormal gait, Confusion, Headache, Numbness, Paresthesias, Seizure, Tingling, Tremors, Vertigo, Weakness Psychiatric: Reports: As per HPI. Denies: Anxiety, Auditory hallucinations, Depression, Homicidal thoughts, Suicidal thoughts, Visual hallucinations Hematological/Lymphatic: Reports: As per HPI. Denies: Anemia, Blood Clots, Easy bleeding, Easy bruising, Swollen glands Past Medical History - SOCIAL HISTORY Smoking Status: Former smoker Alcohol Use: Rare Drug Use: Occasional Drug Use Detail:: Marijuana - RESPIRATORY Hx Respiratory Disorders: Yes Comment:: current smoker - CARDIOVASCULAR Hx Cardio Disorders: Yes Hx Deep Vein Thrombosis: No Hx Edema: Yes (ankles/hands-arthritis) - NEURO Hx Neuro Disorders: Yes Hx Neuropathy: Yes Comment:: viral meningitis - GI Hx GI Disorders: Yes Hx Abdominal Pain: Yes Hx Nausea/Vomiting: Yes - Hx Genitourinary Disorders: No Comment:: hystectomy - ENDOCRINE Hx Endocrine Disorders: Yes - MUSCULOSKELETAL Hx Musculoskeletal Disorders: Yes Hx Arthritis: Yes (R.A) - PSYCH Hx Psych Problems: Yes Hx Depression: Yes - HEMATOLOGY/ONCOLOGY Hx Hematology/Oncology Disorders: Yes Hx Bruising: Yes (after Remicade inf) Family Medical History Any Significant Family History?: Yes Family Hx Comment (NOT TO BE USED IN PLACE OF ITEMS BELOW): son- had colon polyps age 2. father- hx colon polyps. mother/aunts-diverticulitis Hx Cancer: Grandparents *Cancer Comment: Grandmother/uncle-colon cancer Physical Exam - General General Appearance: Alert, Oriented x3, Cooperative, Mild distress - Head Head exam: Normal inspection - Eye Eye exam: Normal appearance, PERRL, EOMI Pupils: Normal accommodation - ENT ENT exam: Normal exam, Mucous membranes moist, Normal external ear exam, Normal orophraynx Ear exam: Normal external inspection. negative: External canal tenderness Nasal Exam: Normal inspection. negative: Discharge, Sinus tenderness Mouth exam: Normal external inspection, Tongue normal Teeth exam: Normal inspection. negative: Dental caries Throat exam: Normal inspection. negative: Tonsillar erythema, Tonsillar exudate - Neck Neck exam: Normal inspection, Full ROM. negative: Tenderness - Respiratory Respiratory exam: Normal lung sounds bilaterally. negative: Respiratory distress - Cardiovascular Cardiovascular Exam: Regular rate, Normal rhythm, Normal heart sounds - GI/Abdominal GI/Abdominal exam: Soft, Normal bowel sounds. negative: Tenderness - Rectal Rectal exam: Deferred - exam: Deferred - Extremities Extremities exam: Normal inspection, Full ROM, Normal capillary refill. negative: Tenderness - Back Back exam: Reports: Normal inspection, Full ROM. Denies: Muscle spasm, Rash noted, Tenderness - Neurological Neurological exam: Alert, CN II-XII intact, Normal gait, Oriented X3 - Psychiatric Psychiatric exam: Normal affect, Normal mood - Skin Skin exam: Dry, Intact, Normal color, Warm Course Vital Signs 11/11/17 11/11/17 11:06 12:10 Temperature 98.2 F 98.2 F Pulse Rate [ 50 L 51 L Pulse Ox Probe] Respiratory 19 18 Rate Blood Pressure 164/95 133/78 [Left Arm] Pulse Ox 100 99 - Reevaluation(s) Reevaluation #1: 11/11/17 13:24 pt feels better Medical Decision Making - Lab Data Result diagrams: 11/11/17 11:00 11/11/17 11:00 Lab Results 11/11/17 11/11/17 11/11/17 Range/Units 11:00 11:00 11:00 WBC 8.0 (4.2-12.2) K/uL RBC 4.90 (3.80-5.40) M/uL Hgb 15.7 (11.6-16.0) gm/dl Hct 44.5 (35.0-47.0) % MCV 90.8 (81-97) fl MCH 32.0 (27-33) pg MCHC 35.3 (32-36) g/dl RDW 12.2 (11.5-14.5) % Plt Count 290 (130-400) K/uL MPV 11.0 H (7.4-10.4) fl Gran % 54.6 (47-80) % Lymphocytes % 38.4 (16-45) % Monocytes % 6.0 (0-9) % Eosinophils % 0.6 (0-6) % Basophils % 0.4 (0-6) % Sodium 140 (136-145) mmol/L Potassium 3.5 (3.4-4.5) mmol/L Chloride 99 (98-107) mmol/L Carbon Dioxide 25.0 (22-29) mmol/L Anion Gap 16.0 (7-16) BUN 12 (6-20) mg/dL Creatinine 0.6 (0.5-0.9) mg/dL Estimated GFR > 60 mL/min Random Glucose 88 (74-109) mg/dL Calcium 9.5 (8.6-10.0) mg/dL Total Bilirubin 0.50 (0.2-1.0) mg/dL AST 14 (10.0-35.0) U/L ALT 11 (<33) U/L Alkaline Phosphatase 60 (35-104) U/L Total Protein 7.8 (6.6-8.7) g/dL Albumin 5.1 H (4.0-5.0) g/dL Globulin 2.7 (1.4-4.8) gm/dL Albumin/Globulin Ratio 1.9 H (1.1-1.8) Lipase 79 H (13-60) U/L Stool Occult Blood (NEGATIVE) Stool for White Cells No wbc's observed (NO WBC'S) Rotavirus Antigen (NOT DETECT) Cryptosporid parvum Ag (NOT DETECT) Giardia lamblia Ag (NOT DETECT) 11/11/17 11/11/17 Range/Units 11:00 11:00 WBC (4.2-12.2) K/uL RBC (3.80-5.40) M/uL Hgb (11.6-16.0) gm/dl Hct (35.0-47.0) % MCV (81-97) fl MCH (27-33) pg MCHC (32-36) g/dl RDW (11.5-14.5) % Plt Count (130-400) K/uL MPV (7.4-10.4) fl Gran % (47-80) % Lymphocytes % (16-45) % Monocytes % (0-9) % Eosinophils % (0-6) % Basophils % (0-6) % Sodium (136-145) mmol/L Potassium (3.4-4.5) mmol/L Chloride (98-107) mmol/L Carbon Dioxide (22-29) mmol/L Anion Gap (7-16) BUN (6-20) mg/dL Creatinine (0.5-0.9) mg/dL Estimated GFR mL/min Random Glucose (74-109) mg/dL Calcium (8.6-10.0) mg/dL Total Bilirubin (0.2-1.0) mg/dL AST (10.0-35.0) U/L ALT (<33) U/L Alkaline Phosphatase (35-104) U/L Total Protein (6.6-8.7) g/dL Albumin (4.0-5.0) g/dL Globulin (1.4-4.8) gm/dL Albumin/Globulin Ratio (1.1-1.8) Lipase (13-60) U/L Stool Occult Blood Negative (NEGATIVE) Stool for White Cells (NO WBC'S) Rotavirus Antigen Not detected (NOT DETECT) Cryptosporid parvum Ag Not detected (NOT DETECT) Giardia lamblia Ag Not detected (NOT DETECT) Disposition Disposition: Discharge Clinical Impression: Nausea, Abdominal cramping Diarrhea Qualifiers: Diarrhea type: unspecified type Qualified Code(s): R19.7 - Diarrhea, unspecified Disposition: Home, Self-Care Condition: (1) Good Instructions: Acute Nausea and Vomiting (ED), Acute Diarrhea (ED) Additional Instructions: follow up with family doctor. return sooner if worse. continue probiotics Forms: Patient Portal Access Quality - Quality Measures Quality Measures: N/A - Blood Pressure Screening Does Patient Have Any of the Following: No Blood Pressure Classification: Pre-Hypertensive BP Reading Systolic Measurement: 133 Diastolic Measurement: 78 Screening for High Blood Pressure: < Pre-Hypertensive BP, F/U Documented > [ G8950] Pre-Hypertensive Follow-up Interventions: Follow-up with rescreen every year.
[2017-11-11 12:31] LABS: MOLECULAR C DIFF TOXIN SCREEN NOT DETECTED (NOT DETECT)
[2017-11-11] MEDS ORDERED: LORAZEPAM 2 MG/ML VIAL IV ONE (13:20)
== END 2017-11-11 13:36 | disposition home or self-care (01) ==
LOC: ER 10:39
DX: R10.84 Generalized abdominal pain (principal); R19.7 Diarrhea, unspecified; R11.0 Nausea; F17.210 Nicotine dependence, cigarettes, uncomplicated
CPT/HCPCS: 99284 ×2; 96365; 96366; 96375; 96361; 83690; 87329; 85025; 80053; 89055; 87425; 87427; 82272; 87493; J2060; J2550; J7030

== ENCOUNTER 2018-01-12 10:42 | Day surgery (SDC) | payer MEDICARE, MEDICAID ==
--- NOTE | 2018-01-12 06:50 | History and Physical - [place] ---
CHIEF COMPLAINT/HISTORY OF CHIEF COMPLAINT: This patient with an implanted spinal infusion system infusing a spinal opioid presents today with battery depletion and battery change of the system. PAST MEDICAL HISTORY: Hypertension and trigeminal neuralgia with typical facial pain. PAST SURGICAL HISTORY: Foot surgery, hysterectomy, nasal surgery, and pump implant. MEDICATIONS ON ADMISSION: List to be provided. ALLERGIES: SULFA AND MULTIPLE ANTIBIOTICS. FAMILY/PSYCHOSOCIAL HISTORY: Social history - Caffeine. Family history - Hypertension. SYSTEMS REVIEW: The patient seems appropriate in no acute distress. The remainder of the systems review is positive for blood pressure, irregular heartbeat, gastrointestinal disease, reflux, and lupus. PHYSICAL EXAMINATION: Height and weight are not known. Vital signs are not available. HEENT: Within normal limits. LUNGS: Clear. HEART: Regular rate and rhythm. ABDOMEN: Nontender. MUSCULOSKELETAL: Examination of the musculoskeletal system shows the pump at the left posterior gluteal margin. The incisional site is intact. Midline incision for catheter placement intact. NEUROLOGIC: Cranial nerves are intact. IMPRESSION: 1. INTRACTABLE CERVICAL LUMBAR RADICULOPATHY, ICD-10 CODE M54.12 AND M54.16. 2. INTERSPINAL INFUSION SYSTEM USING HYDROMORPHONE WITH BATTERY DEPLETION. PLAN: The patient is here for replacement of the pump battery with parameter changes. The procedure will be considered outpatient although an overnight stay will be evaluated. JOB NUMBER: [id number] [facility]
[~2018-01-12 10:42] MED LIST: ACETAMINOPHEN 1,000 MG/100 ML BTL IV ONE; CEFAZOLIN 2 Gram 2 GM/50 ML BAG IVPB ONE; FAMOTIDINE 20MG TABLET PO ONE; HYDROMORPHONE HCL 0.04 GM in 0.9 % SODIUM CHLORIDE 10ML VIA 20 ML IV ONE; HYDROMORPHONE PF 2MG/ML AMP 0.008 MG in 0.9 % SODIUM CHLORIDE 10ML VIA 0.996 ML IV ONE; MECLIZINE 25 MG TABLET PO ONE; METOCLOPRAMIDE 10 MG TABLET PO ONE
[2018-01-12] MEDS ORDERED: MIDAZOLAM HCL 2MG/2ML VIAL IV ONE (10:43)
[2018-01-12] MEDS ORDERED: BUPIVACAINE 0.5% W/EPI MPF 30 ML VIAL IVP ONE (10:43)
[2018-01-12] MEDS ORDERED: LIDOCAINE 1% W/EPI 1:200,000 MPF 30ML SQ ONE (10:43)
[2018-01-12] MEDS ORDERED: 0.9 % SODIUM CHLORIDE 10 ML VIAL IVP ONE (10:43)
[2018-01-12] MEDS ORDERED: LIDOCAINE 2% MDV (20MG/ML) 20ML VIAL IV ONE (10:43)
[2018-01-12] MEDS ORDERED: PROPOFOL 10 MG/ML VIAL IV ONE (10:43)
[2018-01-12] MEDS ORDERED: FENTANYL PF 100MCG/2ML VIAL IV ONE (10:43)
[2018-01-12] MEDS ORDERED: CEFAZOLIN 1G VIAL IM ONE (10:43)
--- NOTE | 2018-01-14 07:18 | Operative Note ---
DATE: 01/12/2018. PREOPERATIVE DIAGNOSIS: 1. LUMBAR RADICULOPATHY, ICD-10 CODE M54.16 AND M54.17. 2. IMPLANTED SPINAL OPIOID INFUSION SYSTEM WITH SALINE WITH DEPLETED BATTERY. PROCEDURES: 1. Fluoroscopically guided incision, subcutaneous dissection, and removal and replacement of programmable pump at the left posterior gluteal margin. 2. Pump filled with hydromorphone 2.0 mg per mL interfaced to indwelling catheter. 3. Diagnostic myelography with radiologic supervision and interpretation. 4. Programming of pump to deliver by continuous infusion with hydromorphone at 0.04 mg a day. 5. Closure of incisions with Stratafix suture, #2-0 for the fascia and #3-0 for the skin. Dermabond closure. SURGEON: Oleksandr Diaz D.O. ANESTHESIA: Local sedation. ANESTHESIA PROVIDER: Paula Meneses CRNA. INDICATIONS: This patient presents with a history of an intractable lumbar radiculopathy. She has a programmable pump in place which had been titrated down off the hydromorphone and filled with saline. Battery depletion was identified. Because of the increasing amount of pain, the patient had opted to refill the pump with opioid with hydromorphone and reinitiate the spinal infusion therapy. DESCRIPTION OF PROCEDURE: Intravenous lines, vital sign monitoring, and intravenous sedation. Prepped and draped with sterile technique with the patient positioned prone. Sterile prep at the left posterior gluteal margin pump pouch site. The skin was infiltrated and an incision was made. Subcutaneous dissection was conducted to the pump pouch. The pouch was opened and the pump was exteriorized and from the indwelling catheter. A new pump was placed onto the field prefilled with hydromorphone 2.0 mg per mL. This was interfaced to the indwelling catheter. A curved 24-gauge Grullon needle was placed into the access port, and 1.0 mL of catheter contents was aspirated, clearing the catheter of all opioid and cerebrospinal fluid. Diagnostic myelography was performed. The resulting flow characteristics were appropriate for the space. The tip of the catheter was noted at C6. The pump was then placed into the pouch and secured to the posterior fascia nonabsorbable suture at three points with pump eyelets. The previously placed Dacron sheath had been removed intact. With the pump anchored by way of the nonabsorbable suture, diagnostic myelography was repeated to confirm appropriate flow characteristics and patency of the system. The incisions were then closed using Stratafix suture, #2-0 for the fascia and # 3-0 for the skin. Dermabond closure. The pump was programmed to deliver by continuous infusion hydromorphone at 0.04 mg a day. She was transported to the recovery room stable with no side effects from the procedure or the sedation. DISCHARGE INSTRUCTIONS: 1. The sites are to remain clean and dry. No showering or bathing in any way that would disrupt dressings. 2. Standard medications to be resumed including the antibiotic Levaquin 500 mg once a day for 14 days. 3. Spinal opioid side effects including respiratory depression, nausea, vomiting, constipation, urinary retention, lightheadedness, and rash have all been discussed and reviewed. 4. The office is to contact the patient in 24 to 48 hours to set up a time in 7 to 10 days to evaluate the sites. Until then, she is to keep her activities low. 5. All other instructions were provided including numbers to contact with problems. 6. She will be prepared for discharge. JOB NUMBER: [id number] cc: Harvey Bush
== END 2018-01-12 13:28 | disposition home or self-care (01) ==
LOC: SUR 10:42
PROVIDERS: ATTEND Pain Medicine Interventional Pain Medicine
DX: M54.16 Radiculopathy, lumbar region (principal); M54.17 Radiculopathy, lumbosacral region; M06.9 Rheumatoid arthritis, unspecified; G89.29 Other chronic pain; K21.9 Gastro-esophageal reflux disease without esophagitis; F17.210 Nicotine dependence, cigarettes, uncomplicated
CPT/HCPCS: 62362; 00300; 62368; Q9967; J3010; J0690; J1170

== ENCOUNTER 2018-01-25 03:06 | Observation (INO) | payer MEDICARE, MEDICAID ==
[2018-01-25] MEDS ORDERED: 0.9 % SODIUM CHLORIDE 1,000 ML BAG IV ONE (03:18)
[2018-01-25] MEDS ORDERED: METOCLOPRAMIDE HCL 10 MG/2 ML VIAL IVP ONE (03:24)
[2018-01-25] MEDS ORDERED: DIPHENHYDRAMINE HCL 50 MG/ML VIAL IVP ONE (03:24)
[2018-01-25 03:26] LABS: HEMATOCRIT 48.4 % (35.0-47.0); HEMOGLOBIN 17.7 gm/dl (11.6-16.0); MEAN CELL VOLUME 87.7 fl (81-97); MEAN CORPUSCULAR HGB CONC 36.6 g/dl (32-36); PLATELET COUNT 383 K/uL (130-400); RED BLOOD COUNT 5.52 M/uL (3.80-5.40); RED CELL DISTRIBUTION WIDTH 12.2 % (11.5-14.5); WHITE BLOOD COUNT W/O DIFF 14.8 K/uL (4.2-12.2)
--- NOTE | 2018-01-25 03:29 | Emergency Department Record ---
History of Present Illness - General Chief complaint: Vomiting Stated complaint: VOMITING Source: Patient, Family Mode of Arrival: Wheelchair Limitations: No limitations - History of Present Illness Initial comments: 47 yo female presents with nausea, vomiting, and diarrhea since 10am. She denies fever or blood in the vomit or diarrhea. She reports she has had about a 10 year history of recurrent similar symptoms. She has had work ups with GI and general surgery. She had her gall bladder removed in December. She did well until yesterday. She states the gall bladder was removed as an attempt to treat her chronic nausea, vomiting and abdominal pain. Her most recent CT scans , US, and HIDA were negative. PCP is Dr Gamboa. She is a patient of Dr Diaz. She had surgery last week for a pain pump. She reports due to the vomiting she has not been able to take her regular medications including her pain medication, anxiety medication, and antibiotic since yesterday morning. She missed a post op appointment with Dr Diaz on Wednesday. MD complaint: Diarrhea, Nausea, Vomiting Onset/Timin -: Hour(s) Description of Vomiting: Watery Description of Diarrhea: Water Associated Abdominal Pain: Yes Location: RUQ Severity scale (1-10): 9 Quality: Cramping Consistency: Constant Improves with: None Worsens with: Eating Context: Other Associated Symptoms: Loss of appetite - Related Data Home Medications Medication Instructions Recorded Confirmed Last Taken Levofloxacin [Levaquin] 500 mg PO DAILY 01/25/18 01/25/18 Unknown Allergies Allergy/AdvReac Type Severity Reaction Status Date / Time etanercept [From Enbrel] Allergy Severe HIVES Verified 11/11/17 10:47 Echinacea [ECHINACEA] Allergy Unknown SWELLING Verified 11/11/17 10:47 OF THE TONGUE hydroxychloroquine sulfate Allergy Unknown DIARRHEA Verified 11/11/17 10:47 [From PLAQUENIL] hyoscyamine sulfate Allergy Unknown SKIN Verified 11/11/17 10:47 [From LEVSIN] IRRITATION ketorolac tromethamine Allergy Unknown HIVES Verified 11/11/17 10:47 [From TORADOL] methotrexate [METHOTREXATE] Allergy Unknown HYPERSENSIT Verified 11/11/17 10:47 IVITY Tfqezuj-Eci-Teg Reductase Allergy Unknown HIVES Verified 11/11/17 10:47 Inhibitor [LTTHFTX-JJT-QSH REDUCTASE INHIBITOR] Sulfa (Sulfonamide Allergy Unknown HIVES Verified 11/11/17 10:47 Antibiotics) [SULFA(SULFONAMIDE ANTIBIOTICS)] niacin Allergy HIVES Verified 11/11/17 10:47 Travel Screening - Travel/Exposure Within Last 30 Days Have you traveled within the last 30 days?: No - Travel Symptoms Symptom Screening: None Review of Systems Constitutional: Denies: Chills, Fever, Weakness Eyes: Denies: Eye discharge, Eye pain, Vision change ENT: Denies: Congestion, Throat pain Respiratory: Denies: Cough, Dyspnea, Hemoptysis, Wheezes Cardiovascular: Denies: Chest pain, Edema, Palpitations, Syncope Endocrine: Reports: Fatigue Gastrointestinal: Reports: Abdominal pain, Diarrhea, Nausea, Vomiting. Denies: Constipation, Hematemesis, Hematochezia, Melena Genitourinary: Denies: Dysuria, Urgency Musculoskeletal: Denies: Arthralgia, Back pain, Myalgia, Neck pain Skin: Denies: Bruising, Change in color, Rash Neurological: Denies: Headache, Weakness Psychiatric: Reports: Anxiety Hematological/Lymphatic: Denies: Blood Clots, Easy bleeding, Easy bruising, Swollen glands Past Medical History - SOCIAL HISTORY Smoking Status: Light tobacco smoker (<10/day) - RESPIRATORY Hx Respiratory Disorders: Yes Hx Pneumonia: Yes (in past) Comment:: current smoker - CARDIOVASCULAR Hx Cardio Disorders: Yes Hx Deep Vein Thrombosis: No Hx Edema: Yes (ankles/hands-arthritis) - NEURO Hx Neuro Disorders: Yes Hx Neuropathy: Yes (sometimes hands and feet) Comment:: viral meningitis, raynauds - GI Hx GI Disorders: Yes Hx Reflux: Yes Comment:: diarrhea chronic - Hx Genitourinary Disorders: No Comment:: hystectomy - ENDOCRINE Hx Endocrine Disorders: No - MUSCULOSKELETAL Hx Musculoskeletal Disorders: Yes Hx Arthritis: Yes (R.A) Hx Fibromyalgia: Yes Comment:: lupus SLE - PSYCH Hx Psych Problems: Yes Hx Anxiety: Yes Hx Depression: Yes - HEMATOLOGY/ONCOLOGY Hx Hematology/Oncology Disorders: No Hx Bruising: No (denies) Family Medical History Any Significant Family History?: Yes Family Hx Comment (NOT TO BE USED IN PLACE OF ITEMS BELOW): son- had colon polyps age 2. father- hx colon polyps. mother/aunts-diverticulitis Hx Cancer: Grandparents *Cancer Comment: Grandmother/uncle-colon cancer Physical Exam - General General Appearance: Alert, Oriented x3, Cooperative, No acute distress Limitations: No limitations - Head Head exam: Atraumatic, Normal inspection - Eye Eye exam: Normal appearance, PERRL. negative: Conjunctival injection, Scleral icterus - ENT ENT exam: Normal exam, Mucous membranes moist, Normal orophraynx Ear exam: Normal external inspection Nasal Exam: Normal inspection Mouth exam: Normal external inspection - Neck Neck exam: Normal inspection - Respiratory Respiratory exam: Normal lung sounds bilaterally. negative: Decreased breath sounds, Respiratory distress, Rhonchi, Stridor, Wheezes - Cardiovascular Cardiovascular Exam: Bradycardia Peripheral Pulses: 2+: Radial (R), Radial (L) - GI/Abdominal GI/Abdominal exam: Soft, Tenderness (very soft but tender mid abdomen). negative: Distended, Guarding, Rebound, Rigid - Rectal Rectal exam: Deferred - exam: Deferred - Extremities Extremities exam: Normal inspection. negative: Pedal edema - Back Back exam: Denies: CVA tenderness (R), CVA tenderness (L) - Neurological Neurological exam: Alert, Oriented X3 - Psychiatric Psychiatric exam: Anxious - Skin Skin exam: Dry, Intact, Normal color, Warm Course Vital Signs 01/25/18 03:13 Temperature 98.2 F Pulse Rate [ 44 L Pulse Ox Probe] Respiratory 20 Rate Blood Pressure 121/101 [Right Arm] Pulse Ox 98 - Reevaluation(s) Reevaluation #1: 01/25/18 03:34 EKG 03 Rate 44 Rhythm sinus brittny [place] normal Intervals QTc [address] ST Non specific Some baseline artifact noted. Prior 03/11/17 similar to 03/11/17 with sinus bradycardia of 45 noted at that time 01/25/18 03:44 The magnesium is 2.0 The CBC was reviewed. Hgb is 17 with WBC 14. 01/25/18 03:48 The patient is intermittently in bigeminy on the monitor. She is asymptomatic. 01/25/18 03:49 01/25/18 03:50 K is 3.8 HCO3 is 19 with AG of 22. 01/25/18 03:57 The troponin is negative. 01/25/18 03:58 The results were discussed with the patient. Given likely some dehydration with low HCO3 and elevated AG, bradycardia with intermittent bigeminy, persistent nausea and vomiting recommend OBV with electrolyte replacement, IVF hydration, and cardiology consult for bradycardia with bigeminy. Additionally, given she has been unable to take her regular medications she will be treated supportively until nausea controlled and she can resume or oral pain medication. EMR reviewed. The HR normally 60-80 on most recent records. 01/25/18 04:05 At this time she is back in sinus bradycardia without PVCs 01/25/18 04:14 Medical Decision Making - Lab Data Result diagrams: 01/25/18 03:20 01/25/18 03:20 Disposition Disposition: Admit Clinical Impression: Nausea, Abdominal cramping, Bradycardia, Bigeminy Vomiting Qualifiers: Vomiting type: unspecified Vomiting Intractability: unspecified Nausea presence : with nausea Qualified Code(s): R11.2 - Nausea with vomiting, unspecified Diarrhea Qualifiers: Diarrhea type: unspecified type Qualified Code(s): R19.7 - Diarrhea, unspecified Disposition: Still a Patient at [facility] Decision to Admit: Admit from ER Decision to Admit Date: 01/25/18 Decision to Admit Time: 03:58 Condition: (2) Stable Time of Disposition: 03:50 Quality - Quality Measures Quality Measures: N/A - Blood Pressure Screening Does Patient Have Any of the Following: No Blood Pressure Classification: Pre-Hypertensive BP Reading Systolic Measurement: 132 Diastolic Measurement: 82 Screening for High Blood Pressure: < Pre-Hypertensive BP, F/U Documented > [ G8950] Pre-Hypertensive Follow-up Interventions: Referral to alternative/primary care provider.
[2018-01-25 03:36] LABS: BLOOD UREA NITROGEN 13 mg/dL (6-20); CREATININE 0.7 mg/dL (0.5-0.9); EST GLOMERULAR FILTRATION RATE > 60 mL/min
[2018-01-25 03:37] LABS: TOTAL PROTEIN 8.8 g/dL (6.6-8.7)
[2018-01-25 03:39] LABS: GLUCOSE,RANDOM 151 mg/dL (74-109)
[2018-01-25 03:41] LABS: ALB/GLOB RATIO 1.6 (1.1-1.8); ALBUMIN 5.4 g/dL (4.0-5.0); ALKALINE PHOSPHATASE 93 U/L (35-104); ALT/SGPT 14 U/L (<33); AST/SGOT 20 U/L (10.0-35.0)
[2018-01-25 03:42] LABS: LIPASE 20 U/L (13-60)
[2018-01-25] MEDS ORDERED: METOCLOPRAMIDE HCL 10 MG/2 ML VIAL IVP PRN (04:27)
[2018-01-25] MEDS ORDERED: POTASSIUM CHLORIDE/D5-0.9%NACL 20 MEQ/1,000 ML BAG IV SCH (04:27)
[2018-01-25] MEDS: MORPHINE SULFATE 10 MG/ML VIAL IVP SCH ×2 (04:52→10:29)
[2018-01-25] MEDS ORDERED: LEVOFLOXACIN 500MG IVPB 500 MG/100 ML BAG IVPB SCH (05:00)
[2018-01-25] MEDS: CLONAZEPAM 1MG TABLET PO PRN ×2 (05:24→13:27)
[2018-01-25] MEDS ORDERED: PANTOPRAZOLE SODIUM 40 MG TABLET PO SCH (07:00)
--- NOTE | 2018-01-25 09:07 | History & Physical ---
History of Present Illness - Date of Service Date of Service for History & Physical: 01/25/18 - History of Present Illness Admitting Diagnosis: Dehydration, Bradycardia, Bigeminy, Vomiting and Diarrhea History of Present Illness: Mrs. Brunson is a 47 y/o female with a 4-5 day complain of diarrhea, nausea and vomiting. Her symptoms initially began with her diarrhea which she describes as without blood or mucus. But she does note blood with wiping. She says she had several movements on day one and this has progressively gotten worse. She has an extensive history of gastrointestinal complaint and chronic pain for which she has had a recent laproscopic cholecystectomy and pain pump implantation respectively. She has had multiple EGD and colonoscopies with her most recent scope being 07/02/17 which noted diverticulosis and a polyp which was resected. The patient says that she has been on antibiotics daily since the pump implantation but has not had any other recent changes to her medications. She has not had any sick contacts, change in diet, appetite, weight loss or recent travel. On admission the patient continued to have nausea and vomiting but she says that her last bowel movement was last night just after she came in to hospital. Over the past 12 hours she has been able to tolerate liquid diet without vomiting but complains of abdominal cramps. Travel Screening - Travel/Exposure Within Last 30 Days Have you traveled within the last 30 days?: No - Travel/Exposure Within Last Year Have you traveled outside the [place] in the last year?: No - Additonal Travel Details Have you been exposed to anyone with a communicable illness?: No - Travel Symptoms Symptom Screening: None Review of Systems Constitutional: Denies: Chills, Fever, Weakness Eyes: Denies: Eye discharge, Eye pain, Vision change ENT: Denies: Congestion, Throat pain Respiratory: Denies: Cough, Dyspnea, Hemoptysis, Wheezes Cardiovascular: Denies: Chest pain, Edema, Palpitations, Syncope Endocrine: Reports: Fatigue Gastrointestinal: Reports: Abdominal pain, Diarrhea, Nausea, Vomiting. Denies: Constipation, Hematemesis, Hematochezia, Melena Genitourinary: Denies: Dysuria, Urgency Musculoskeletal: Denies: Arthralgia, Back pain, Myalgia, Neck pain Skin: Denies: Bruising, Change in color, Rash Neurological: Denies: Headache, Weakness Psychiatric: Reports: Anxiety Hematological/Lymphatic: Denies: Blood Clots, Easy bleeding, Easy bruising, Swollen glands Past Medical History - SOCIAL HISTORY Smoking Status: Light tobacco smoker (<10/day) Alcohol Use: None Drug Use: Occasional Drug Use Detail:: Marijuana - RESPIRATORY Hx Respiratory Disorders: Yes Hx Pneumonia: Yes (in past) Comment:: current smoker - CARDIOVASCULAR Hx Cardio Disorders: Yes Hx Deep Vein Thrombosis: No Hx Edema: Yes (ankles/hands-arthritis) - NEURO Hx Neuro Disorders: Yes Hx Neuropathy: Yes (sometimes hands and feet) Comment:: viral meningitis, raynauds - GI Hx GI Disorders: Yes Hx Reflux: Yes Comment:: diarrhea chronic - Hx Genitourinary Disorders: No Comment:: hystectomy - ENDOCRINE Hx Endocrine Disorders: No - MUSCULOSKELETAL Hx Musculoskeletal Disorders: Yes Hx Arthritis: Yes (R.A) Hx Fibromyalgia: Yes Comment:: lupus SLE - PSYCH Hx Psych Problems: Yes Hx Anxiety: Yes Hx Depression: Yes - HEMATOLOGY/ONCOLOGY Hx Hematology/Oncology Disorders: No Hx Bruising: No (denies) Family Medical History Any Significant Family History?: Yes Family Hx Comment (NOT TO BE USED IN PLACE OF ITEMS BELOW): son- had colon polyps age 2. father- hx colon polyps. mother/aunts-diverticulitis Hx Cancer: Grandparents *Cancer Comment: Grandmother/uncle-colon cancer H&P Meds/Allergies - Allergies Allergies: Allergies Allergy/AdvReac Type Severity Reaction Status Date / Time etanercept [From Enbrel] Allergy Severe HIVES Verified 11/11/17 10:47 Echinacea [ECHINACEA] Allergy Unknown SWELLING Verified 11/11/17 10:47 OF THE TONGUE hydroxychloroquine sulfate Allergy Unknown DIARRHEA Verified 11/11/17 10:47 [From PLAQUENIL] hyoscyamine sulfate Allergy Unknown SKIN Verified 11/11/17 10:47 [From LEVSIN] IRRITATION ketorolac tromethamine Allergy Unknown HIVES Verified 11/11/17 10:47 [From TORADOL] methotrexate [METHOTREXATE] Allergy Unknown HYPERSENSIT Verified 11/11/17 10:47 IVITY Bemmflv-Cia-Tht Reductase Allergy Unknown HIVES Verified 11/11/17 10:47 Inhibitor [[id number] REDUCTASE INHIBITOR] Sulfa (Sulfonamide Allergy Unknown HIVES Verified 11/11/17 10:47 Antibiotics) [SULFA(SULFONAMIDE ANTIBIOTICS)] niacin Allergy HIVES Verified 11/11/17 10:47 - Home Medications Home Medications Medication Instructions Recorded Confirmed Last Taken Levofloxacin [Levaquin] 500 mg PO DAILY 01/25/18 01/25/18 Unknown - Active Medications Active Medications: Current Medications Clonazepam (Klonopin) 0.5 mg PO Q8H PRN PRN Reason: ANXIETY Last Admin: 01/25/18 05:24 Dose: 0.5 mg Levofloxacin/Dextrose (Levaquin 500mg Ivpb) 500 mg in 100 mls @ 125 mls/hr IVPB Q24H [facility] Stop: 01/30/18 05:01 Last Infusion: 01/25/18 05:45 Dose: Infused Potassium Chloride/Dextrose/Sod Cl () 20 meq in 1,000 mls @ 125 mls/hr IV Q8H [facility] Last Admin: 01/25/18 04:53 Dose: 125 mls/hr Metoclopramide HCl (Reglan) 10 mg IVP Q6H PRN PRN Reason: NAUSEA Last Admin: 01/25/18 05:09 Dose: 10 mg Morphine Sulfate (Morphine Sulfate) 4 mg IVP Q4H [facility] Last Admin: 01/25/18 04:52 Dose: 4 mg Pantoprazole Sodium (Protonix) 40 mg PO DAILYAC [facility] Last Admin: 01/25/18 08:12 Dose: 40 mg Physical Exam - Vital Signs Vital Signs: Vital Signs - Last 24 Hrs Temp Pulse Pulse Resp BP Pulse Ox 01/25/18 06:00 98.2 F 52 L 18 126/95 96 01/25/18 04:27 97.9 F 62 20 127/98 97 01/25/18 04:26 44 L 24 142/66 100 01/25/18 04:21 62 20 158/104 99 01/25/18 03:29 45 L 16 134/74 100 01/25/18 03:13 98.2 F 44 L 20 121/101 98 - General General Appearance: Alert, Oriented x3, Cooperative, No acute distress Limitations: No limitations - Head Head exam: Atraumatic, Normal inspection - Eye Eye exam: Normal appearance, PERRL. negative: Conjunctival injection, Scleral icterus - ENT ENT exam: Normal exam, Mucous membranes moist, Normal orophraynx Ear exam: Normal external inspection Nasal Exam: Normal inspection Mouth exam: Normal external inspection - Neck Neck exam: Normal inspection - Respiratory Respiratory exam: Normal lung sounds bilaterally. negative: Decreased breath sounds, Respiratory distress, Rhonchi, Stridor, Wheezes - Cardiovascular Cardiovascular Exam: Bradycardia Peripheral Pulses: 3+: Radial (R), Radial (L), Dorsalis Pedis (R), Dorsalis Pedis (L) - GI/Abdominal GI/Abdominal exam: Soft, Tenderness (very soft but tender mid abdomen). negative: Distended, Guarding, Rebound, Rigid - Rectal Rectal exam: Deferred - exam: Deferred - Extremities Extremities exam: Normal inspection. negative: Pedal edema - Back Back exam: Denies: CVA tenderness (R), CVA tenderness (L) - Neurological Neurological exam: Alert, Oriented X3 - Psychiatric Psychiatric exam: Anxious - Skin Skin exam: Dry, Intact, Normal color, Warm Results - Labs Result Diagrams: 01/25/18 03:20 01/25/18 03:20 Labs Last 24 Hours: Laboratory Results - last 24 hr 01/25/18 01/25/18 01/25/18 03:20 03:20 03:20 WBC 14.8 H RBC 5.52 H Hgb 17.7 H Hct 48.4 H MCV 87.7 MCH 32.0 MCHC 36.6 H RDW 12.2 Plt Count 383 MPV 10.0 Neutrophils % 75.0 Band Neutrophils % 0.0 Eosinophils % Not Reportable Basophils % Not Reportable Lymphocytes 22.0 Monocytes 3.0 Basophils 0.0 Eosinophil Count 0.0 Sodium 141 Potassium 3.8 Chloride 100 Carbon Dioxide 19.0 L Anion Gap 22.0 H BUN 13 Creatinine 0.7 Estimated GFR > 60 Random Glucose 151 H Calcium 10.7 H Magnesium 2.0 Total Bilirubin 0.50 AST 20 ALT 14 Alkaline Phosphatase 93 Troponin T < 0.010 Total Protein 8.8 H Albumin 5.4 H Globulin 3.4 Albumin/Globulin Ratio 1.6 Lipase 20 01/25/18 03:28 WBC RBC Hgb Hct MCV MCH MCHC RDW Plt Count MPV Neutrophils % Band Neutrophils % Eosinophils % Basophils % Lymphocytes Monocytes Basophils Eosinophil Count Sodium Potassium Chloride Carbon Dioxide Anion Gap BUN Creatinine Estimated GFR Random Glucose Calcium Magnesium Cancelled Total Bilirubin AST ALT Alkaline Phosphatase Troponin T Total Protein Albumin Globulin Albumin/Globulin Ratio Lipase VTE H&P Assessment - Risk for VTE Risk for VTE: Yes Risk Level: Moderate Risk Assessment Date: 01/25/18 Risk Assessment Time: 13:01 VTE Orders Placed or Will Be Placed: Yes Plan - Detailed Diagnosis and Plan (1) Vomiting Current Visit: Yes Status: Acute Qualifiers: Vomiting type: unspecified Vomiting Intractability: unspecified Nausea presence: with nausea Qualified Code(s): R11.2 - Nausea with vomiting, unspecified Base Code: R11.10 - VOMITING, UNSPECIFIED Comment: 01/25/18: - WBCs 14.8, CMP WNL, - resolved and patient tolerated clear liquid diet. - advancing diet to full diet and resumption of oral medication. - on IVF 0.9% Nacl @ 125mL/hr, Reglan 10mg Q6H PRN, Zofran 4 mg Q8H PO PRN. (2) Diarrhea Current Visit: Yes Status: Acute Qualifiers: Diarrhea type: unspecified type Qualified Code(s): R19.7 - Diarrhea, unspecified Base Code: R19.7 - DIARRHEA, UNSPECIFIED Comment: 01/25/18: - hx of diverticulosis and adenomatous polyp s/p resection. - resolved with last bowel movement last night. (3) Bradycardia Current Visit: Yes Status: Acute Base Code: R00.1 - BRADYCARDIA, UNSPECIFIED Comment: 01/25/18: - EKG: sinus bradycardia, with runs of bigeminy. - Unable to see any previous EKGs. - On continuois cardiac rehab nurse. - Cardiology consulted. (4) Narcotic drug use Current Visit: No Status: Acute Base Code: F11.90 - OPIOID USE, UNSPECIFIED , UNCOMPLICATED Comment: 01/25/18: - Hx of RA and on Humira as per Garage Door Technician. Recent battery change to morhpine pain pump. - Chronic pain with PO morphine sulfate 30mg bid and PO oxymorphone 10mg 5xday as per pain specialist. - D/C all IV pain medications if PO tolerated. (5) Polycythemia Current Visit: Yes Status: Acute Base Code: D75.1 - SECONDARY POLYCYTHEMIA Comment: 01/25/18: - hgb 17.7, Hct 48.4 - hx smoking, other etiologies unclear. - repeat labs in the morning. (6) DVT prophylaxis Current Visit: No Status: Acute Base Code: [id number] - Comment: 01/25/18: - Lovenox 40mg SQ QD - Ambulation ad kelsey (7) Full code status Current Visit: No Status: Acute Base Code: Z78.9 - OTHER SPECIFIED HEALTH STATUS Comment: 01/25/18: - full code
[2018-01-25] MEDS ORDERED: ONDANSETRON 4 MG ODT TABLET SL PRN (10:13)
[2018-01-25] MEDS ORDERED: MORPHINE SULFATE 30MG TABLET.ER PO SCH ×2 (10:15→22:00)
[2018-01-25] MEDS ORDERED: DICYCLOMINE HCL 10 MG CAPSULE PO PRN (13:22)
[2018-01-25] MEDS ORDERED: CITALOPRAM 20 MG TABLET PO SCH ×2 (22:00)
--- NOTE | 2018-01-26 08:22 | Discharge Summary ---
Providers Discharge Summary Date: 01/26/18 Date of admission: 01/25/18 04:25 Attending physician: ELSIE MURILLO Primary care physician: MICHEL GAMBOA M.D. Consults: Consult Orders 01/25/18 04:27 Consult - Cardiology NOW Consulting Provider: JULIO PARISI Physician Instructions: Reason For Exam: bradycardia, bigeminy Does pt have current hand candy cutter?: Not Established Physical Exam - Vital Signs Vital Signs: Vital Signs - Last 24 Hrs Temp Pulse Pulse Resp BP Pulse Ox 01/25/18 15:00 97.5 F L 56 L 18 132/82 97 01/25/18 09:00 57 L 18 - General General Appearance: Alert, Oriented x3, Cooperative, No acute distress Limitations: No limitations - Head Head exam: Atraumatic, Normal inspection - Eye Eye exam: Normal appearance, PERRL. negative: Conjunctival injection, Scleral icterus - ENT ENT exam: Normal exam, Mucous membranes moist, Normal orophraynx Ear exam: Normal external inspection Nasal Exam: Normal inspection Mouth exam: Normal external inspection - Neck Neck exam: Normal inspection - Respiratory Respiratory exam: Normal lung sounds bilaterally. negative: Decreased breath sounds, Respiratory distress, Rhonchi, Stridor, Wheezes - Cardiovascular Cardiovascular Exam: Bradycardia Peripheral Pulses: 2+: Radial (R), Radial (L), 3+: Dorsalis Pedis (R), Dorsalis Pedis (L) - GI/Abdominal GI/Abdominal exam: Soft, Tenderness (very soft but tender mid abdomen). negative: Distended, Guarding, Rebound, Rigid - Rectal Rectal exam: Deferred - exam: Deferred - Extremities Extremities exam: Normal inspection. negative: Pedal edema - Back Back exam: Denies: CVA tenderness (R), CVA tenderness (L) - Neurological Neurological exam: Alert, Oriented X3 - Psychiatric Psychiatric exam: Anxious - Skin Skin exam: Dry, Intact, Normal color, Warm Hospitalization - Hospitalization Admission Diagnosis: Dehydration, Bradycardia, Bigeminy, Vomiting and Diarrhea - Problem List/Discharge Diagnosis (1) Vomiting Status: Acute Discharge Diagnosis: Vomiting type: unspecified Vomiting Intractability: unspecified Nausea presence: with nausea Qualified Code(s): R11.2 - Nausea with vomiting, unspecified Base Code: R11.10 - VOMITING, UNSPECIFIED Comment: 01/25/18: - WBCs 14.8, CMP WNL, - resolved and patient tolerated clear liquid diet. - advancing diet to full diet and resumption of oral medication. - on IVF 0.9% Nacl @ 125mL/hr, Reglan 10mg Q6H PRN, Zofran 4 mg Q8H PO PRN. (2) Diarrhea Status: Acute Discharge Diagnosis: Diarrhea type: unspecified type Qualified Code(s): R19.7 - Diarrhea, unspecified Base Code: R19.7 - DIARRHEA, UNSPECIFIED Comment: 01/25/18: - hx of diverticulosis and adenomatous polyp s/p resection. - resolved with last bowel movement last night. (3) Bradycardia Status: Acute Base Code: R00.1 - BRADYCARDIA, UNSPECIFIED Comment: 01/25/18: - EKG: sinus bradycardia, with runs of bigeminy. - Unable to see any previous EKGs. - On continuois environmental monitoring technician. - Cardiology consulted. (4) Narcotic drug use Status: Acute Base Code: F11.90 - OPIOID USE, UNSPECIFIED, UNCOMPLICATED Comment: 01/25/18: - Hx of RA and on Humira as per Athlete Marketing Agent. Recent battery change to morhpine pain pump. - Chronic pain with PO morphine sulfate 30mg bid and PO oxymorphone 10mg 5xday as per pain specialist. - D/C all IV pain medications if PO tolerated. (5) Polycythemia Status: Acute Base Code: D75.1 - SECONDARY POLYCYTHEMIA Comment: 01/25/18: - hgb 17.7, Hct 48.4 - hx smoking, other etiologies unclear. - repeat labs in the morning. (6) DVT prophylaxis Status: Acute Base Code: [id number] - Comment: 01/25/18: - Lovenox 40mg SQ QD - Ambulation ad kelsey (7) Full code status Status: Acute Base Code: Z78.9 - OTHER SPECIFIED HEALTH STATUS Comment: 01/25/18: - full code - Hospitalization Course Disposition: Home, Self-Care Hospital Course: Mrs. Brunson is a 47 y/o female with a 4-5 day complain of diarrhea, nausea and vomiting. Her symptoms initially began with her diarrhea which she describes as without blood or mucus. But she does note blood with wiping. She says she had several movements on day one and this has progressively gotten worse. She has an extensive history of gastrointestinal complaint and chronic pain for which she has had a recent laproscopic cholecystectomy and pain pump implantation respectively. She has had multiple EGD and colonoscopies with her most recent scope being 07/02/17 which noted diverticulosis and a polyp which was resected. The patient says that she has been on antibiotics daily since the pump implantation but has not had any other recent changes to her medications. She has not had any sick contacts, change in diet, appetite, weight loss or recent travel. On admission the patient continued to have nausea and vomiting but she says that her last bowel movement was last night just after she came in to hospital. Over the past 12 hours she has been able to tolerate liquid diet without vomiting but complains of abdominal cramps. Re-evaluation at approximately 3:30pm the patient says that she has been tolerating food and her medications without nausea or vomiting. She is keen on being discharged and says that she is ready to go despite the pending Cardiology evaluation. The patient's environmental monitoring technician showed consistent sinus bradycardia but no acute rhythm changes. I did discuss the case with Dr. Parisi and he agrees that the patient is only showing sinus bradycardia on ECG and rhythm strips. No further cardiac workup is indicated at this time. Procedures: Cardiology Procedures 01/25/18 03:19 Life Insurance Underwriter NOW EKG NOW 01/25/18 04:27 Life Insurance Underwriter .Continuous Abnormal Labs: Abnormal Lab Results 01/25/18 01/25/18 Range/Units 03:20 03:20 WBC 14.8 H (4.2-12.2) K/uL RBC 5.52 H (3.80-5.40) M/uL Hgb 17.7 H (11.6-16.0) gm/dl Hct 48.4 H (35.0-47.0) % MCHC 36.6 H (32-36) g/dl Carbon Dioxide 19.0 L (22-29) mmol/L Anion Gap 22.0 H (7-16) Random Glucose 151 H (74-109) mg/dL Calcium 10.7 H (8.6-10.0) mg/dL Total Protein 8.8 H (6.6-8.7) g/dL Albumin 5.4 H (4.0-5.0) g/dL Condition at Discharge: (2) Stable Discharge Medications - Discharge Medications Home Medications: Ambulatory Orders Oxymorphone HCl [Opana] 10 mg PO 5XD 06/21/14 [Last Taken 11/10/17] Baclofen 20 mg PO QID PRN 30 Days #30 10/19/16 [Last Taken 11/10/17] Acetaminophen [Tylenol Arthritis] 650 mg PO Q4H PRN tab 12/15/16 [Last Taken ] Morphine Sulfate 30 mg PO Q12H 03/11/17 [Last Taken 11/10/17] Citalopram Hydrobromide [Citalopram HBr] 20 mg PO QHS 10/13/17 [Last Taken 11/10] Clonazepam 0.5 mg PO Q8H PRN 10/14/17 [Last Taken 11/10/17] Leflunomide 10 mg PO MOTUWETHFR 10/14/17 [Last Taken 11/10/17] Levofloxacin [Levaquin] 500 mg PO DAILY 01/25/18 [Last Taken Unknown] Discharge Plan - Discharge Instructions Instructions: Acute Nausea and Vomiting (DC), Acute Abdominal Pain (DC) Additional Instructions: 2 Activity: up as tolerated 2 Diet: Advance as tolerated or per Dr. Gamboa 2 Consults: [] 2 Follow Up: [Appointments have been scheduled for you as follows: -, Feb 03 at 1:20PM with Dr. Gamboa at [facility]] 2 Dressing/Wound Care: (Type) (Change) 2 Additional: [] Continue home medications Quality Measures - Quality Measures Quality Measures: Documentation of Current Medications in Medical Record, Screening for High Blood Pressure and F/U Documented - Current Medications Quality Measure: Measure #130: Documentation of Current Medications Documentation of Current Medications: <Current Medications Documented/Reviewed> [[id number]] - Blood Pressure Screening Quality Measure: Screening for High Blood Pressure and Follow-Up Documented Does Patient Have Any of the Following: Active Dx of HTN Blood Pressure Classification: Pre-Hypertensive BP Reading Systolic Measurement: 132 Diastolic Measurement: 82 Screening for High Blood Pressure: Patient Exclusion, Hx of HTN [[id number]] - Elder Abuse Suspicion Index EASI Reference Information: Nigel LAZAR, Flower C, Danielle D, Sidney James.Development and validation of a tool to assist physicians identification of elder abuse: The Elder Abuse Suspicion Index (EASI ). Journal of Elder Abuse and Neglect, 2008; 20 (3): 276-300.
== END 2018-01-25 15:00 | disposition home or self-care (01) ==
LOC: ER 03:06 → MEDSURG 04:25
PROVIDERS: ADMIT Internal Medicine; ATTEND Internal Medicine
DX: R11.2 Nausea with vomiting, unspecified (principal); R19.7 Diarrhea, unspecified; E86.0 Dehydration; R00.1 Bradycardia, unspecified; R00.8 Other abnormalities of heart beat; F11.90 Opioid use, unspecified, uncomplicated; D75.1 Secondary polycythemia; M06.9 Rheumatoid arthritis, unspecified; I73.00 Raynaud's syndrome without gangrene; M32.9 Systemic lupus erythematosus, unspecified; F17.210 Nicotine dependence, cigarettes, uncomplicated
CPT/HCPCS: 80053; 83690; 83735; 84484; 85027; 93005; 93010; 96374; 96375; 99220; 99285; J1200; J1956; J2270; J2765; J3480; J7030

== ENCOUNTER 2018-01-28 12:41 | Observation (INO) | payer MEDICARE, MEDICAID, SELFPAY ==
[2018-01-28] MEDS ORDERED: ONDANSETRON HCL IV 4 MG/2 ML VIAL IV ONE (13:18)
[2018-01-28] MEDS ORDERED: 0.9 % SODIUM CHLORIDE 1,000 ML BAG IV ONE (13:18)
[2018-01-28] MEDS ORDERED: HYDROMORPHONE HCL 2 MG/ML VIAL IVP ONE ×2 (13:22→15:01)
--- NOTE | 2018-01-28 13:26 | Emergency Department Record ---
History of Present Illness - General Chief complaint: Vomiting Stated complaint: VOMMITING DIARRHEA Time Seen by Provider: 01/28/18 12:42 Source: Patient Mode of Arrival: Ambulatory Limitations: No limitations - History of Present Illness Initial comments: The patient is here due to a return of the nausea, vomiting, and diarrhea yesterday that she was admitted to the hospital with 3 days ago and discharged 2 days ago. The patient has a long hx of similar problems and chronic pain in the abdomen and back. She did recently have her pain pump changed with Dr. Diaz. The patient also feels very anxious. MD complaint: Diarrhea, Nausea, Vomiting Onset/Timin -: Days(s) Description of Vomiting: Watery Associated Abdominal Pain: Yes Location: Diffuse Severity: Moderate Severity scale (1-10): 8 Quality: Aching, Constant Consistency: Constant Improves with: None Worsens with: None Context: Other Associated Symptoms: Denies other symptoms - Related Data Allergies Allergy/AdvReac Type Severity Reaction Status Date / Time etanercept [From Enbrel] Allergy Severe HIVES Verified 01/28/18 12:59 Echinacea [ECHINACEA] Allergy Unknown SWELLING Verified 01/28/18 12:59 OF THE TONGUE hydroxychloroquine sulfate Allergy Unknown DIARRHEA Verified 01/28/18 12:59 [From PLAQUENIL] hyoscyamine sulfate Allergy Unknown SKIN Verified 01/28/18 12:59 [From LEVSIN] IRRITATION ketorolac tromethamine Allergy Unknown HIVES Verified 01/28/18 12:59 [From TORADOL] methotrexate [METHOTREXATE] Allergy Unknown HYPERSENSIT Verified 01/28/18 12:59 IVITY Nxophkc-Qmk-Seq Reductase Allergy Unknown HIVES Verified 01/28/18 12:59 Inhibitor [[id number] REDUCTASE INHIBITOR] Sulfa (Sulfonamide Allergy Unknown HIVES Verified 01/28/18 12:59 Antibiotics) [SULFA(SULFONAMIDE ANTIBIOTICS)] niacin Allergy HIVES Verified 01/28/18 12:59 Travel Screening - Travel/Exposure Within Last 30 Days Have you traveled within the last 30 days?: No - Travel/Exposure Within Last Year Have you traveled outside the [place] in the last year?: No - Additonal Travel Details Have you been exposed to anyone with a communicable illness?: No - Travel Symptoms Symptom Screening: None Review of Systems Constitutional: Reports: Malaise. Denies: Chills, Fever Eyes: Denies: Eye discharge ENT: Denies: Congestion Respiratory: Denies: Cough Cardiovascular: Denies: Arrhythmia Endocrine: Reports: Fatigue Gastrointestinal: Reports: Abdominal pain, Diarrhea, Nausea, Vomiting Genitourinary: Denies: Dysuria Musculoskeletal: Reports: Back pain (Chronic.). Denies: Arthralgia Skin: Denies: Bruising Past Medical History - SOCIAL HISTORY Smoking Status: Light tobacco smoker (<10/day) Alcohol Use: None Drug Use: Occasional Drug Use Detail:: Marijuana - RESPIRATORY Hx Respiratory Disorders: Yes Hx Pneumonia: Yes (in past) Comment:: current smoker - CARDIOVASCULAR Hx Cardio Disorders: Yes Hx Deep Vein Thrombosis: No Hx Edema: Yes (ankles/hands-arthritis) - NEURO Hx Neuro Disorders: Yes Hx Neuropathy: Yes (sometimes hands and feet) Comment:: viral meningitis, raynauds - GI Hx GI Disorders: Yes Hx Reflux: Yes Comment:: diarrhea chronic - Hx Genitourinary Disorders: No Comment:: hystectomy - ENDOCRINE Hx Endocrine Disorders: No - MUSCULOSKELETAL Hx Musculoskeletal Disorders: Yes Hx Arthritis: Yes (R.A) Hx Fibromyalgia: Yes Comment:: lupus SLE - PSYCH Hx Psych Problems: Yes Hx Anxiety: Yes Hx Depression: Yes - HEMATOLOGY/ONCOLOGY Hx Hematology/Oncology Disorders: No Hx Bruising: No (denies) Family Medical History Any Significant Family History?: Yes Family Hx Comment (NOT TO BE USED IN PLACE OF ITEMS BELOW): son- had colon polyps age 2. father- hx colon polyps. mother/aunts-diverticulitis Hx Cancer: Grandparents *Cancer Comment: Grandmother/uncle-colon cancer Physical Exam - General General Appearance: Alert, Oriented x3, Cooperative, Anxious - Head Head exam: Atraumatic, Normocephalic, Normal inspection - Eye Eye exam: Normal appearance, PERRL - ENT Throat exam: Normal inspection. negative: Tonsillar erythema, Tonsillar exudate - Neck Neck exam: Normal inspection, Full ROM. negative: Tenderness - Respiratory Respiratory exam: Normal lung sounds bilaterally. negative: Respiratory distress - Cardiovascular Cardiovascular Exam: Regular rate, Normal rhythm, Normal heart sounds - GI/Abdominal GI/Abdominal exam: Soft, Normal bowel sounds. negative: Distended, Guarding, Rebound, Rigid, Tenderness - Extremities Extremities exam: Normal inspection, Full ROM, Normal capillary refill. negative: Tenderness - Neurological Neurological exam: Normal gait, Oriented X3. negative: Abnormal gait, Alert, Motor sensory deficit - Psychiatric Psychiatric exam: Anxious Course Vital Signs 01/28/18 13:04 Temperature 99 F Pulse Rate 67 Respiratory 20 Rate Blood Pressure 150/94 Pulse Ox 99 - Reevaluation(s) Reevaluation #1: I did discuss the patient with Dr. Clay who took care of her 3 days ago. He states she left the hospital AMA on the 6th because she needed to vote and it was her anniversary. He is willing to re-admit her here if she is willing to stay. 01/28/18 13:47 Reevaluation #2: The patient is doing a little better but is still having some nausea and vomiting and chronic back pain. I did discuss the case with Dr. Clay and he agrees with the plan to admit overnight for hydration and pain control. 01/28/18 15:03 Medical Decision Making - Data Complexity MDM Data: Labs Ordered and/or Reviewed, EKG Ordered and/or Reviewed - Lab Data Result diagrams: 01/28/18 13:40 01/28/18 13:40 - EKG Data -: EKG Interpreted by Me EKG: No Acute Changes, Unchanged From Previous Disposition Disposition: Admit Clinical Impression: Nausea, Abdominal cramping Disposition: Still a Patient at [facility] Decision to Admit: Admit from ER Decision to Admit Date: 01/28/18 Decision to Admit Time: 15:04 Accepting Physician: Obed Time Discussed w/Accepting Physician: 15:04 Condition: (2) Stable Forms: Patient Portal Access Time of Disposition: 15:04 Quality - Quality Measures Quality Measures: N/A - Blood Pressure Screening View Details: Yes Does Patient Have Any of the Following: No Blood Pressure Classification: Hypertensive Reading Systolic Measurement: 150 Diastolic Measurement: 94 Screening for High Blood Pressure: < First Hypertensive BP, F/U Documented > [ [id number]] First Hypertensive Follow-up Interventions: Referral to alternative/primary care provider.
[2018-01-28 14:04] LABS: BASO % 0.2 % (0-6); EOS % 1.6 % (0-6); HEMATOCRIT 44.8 % (35.0-47.0); HEMOGLOBIN 15.7 gm/dl (11.6-16.0); LYMPH % 21.6 % (16-45); MEAN CELL VOLUME 89.1 fl (81-97); MEAN CORPUSCULAR HEMOGLOBIN 31.2 pg (27-33); MEAN PLATELET VOLUME 10.4 fl (7.4-10.4); MONO % 6.6 % (0-9); PLATELET COUNT 330 K/uL (130-400); RED BLOOD COUNT 5.03 M/uL (3.80-5.40); RED CELL DISTRIBUTION WIDTH 12.1 % (11.5-14.5); WHITE BLOOD COUNT W/O DIFF 10.6 K/uL (4.2-12.2)
[2018-01-28 14:18] LABS: BLOOD UREA NITROGEN 10 mg/dL (6-20); CREATININE 0.6 mg/dL (0.5-0.9); EST GLOMERULAR FILTRATION RATE > 60 mL/min
[2018-01-28 14:19] LABS: TOTAL PROTEIN 8.2 g/dL (6.6-8.7)
[2018-01-28 14:21] LABS: GLUCOSE,RANDOM 102 mg/dL (74-109)
[2018-01-28 14:23] LABS: ALT/SGPT 16 U/L (<33)
[2018-01-28 14:24] LABS: ALBUMIN 5.1 g/dL (4.0-5.0); ALKALINE PHOSPHATASE 74 U/L (35-104); AST/SGOT 20 U/L (10.0-35.0); LIPASE 67 U/L (13-60)
[2018-01-28 14:25] LABS: BILIRUBIN,DIRECT < 0.2 mg/dL (0-0.3)
[2018-01-28] MEDS ORDERED: ONDANSETRON HCL IV 4 MG/2 ML VIAL IVP ONE (14:48)
[2018-01-28] MEDS ORDERED: ONDANSETRON HCL IV 4 MG/2 ML VIAL IVP PRN (16:58)
[2018-01-28] MEDS ORDERED: 0.9 % SODIUM CHLORIDE 1000ML 1,000 ML IV PRN (16:58)
[2018-01-28] MEDS ORDERED: ACETAMINOPHEN 500 MG TABLET PO PRN (16:58)
[2018-01-28] MEDS ORDERED: PROMETHAZINE HCL 12.5 MG in 0.9 % SODIUM CHLORIDE 100ML 100 ML IVPB PRN (16:58)
[2018-01-28] MEDS ORDERED: Non-Formulary MISC (Leflunomide [Leflunomide] 10 MG) PO SCH (16:58)
[2018-01-28] MEDS ORDERED: HYDROMORPHONE HCL 2 MG/ML VIAL IV PRN (16:58)
[2018-01-28] MEDS ORDERED: BACLOFEN 10 MG TABLET PO PRN (16:58)
--- NOTE | 2018-01-28 17:35 | History & Physical ---
History of Present Illness - Date of Service Date of Service for History & Physical: 01/28/18 - History of Present Illness Admitting Diagnosis: 1. Intractable Nausea and Vomiting with Chronic pain. History of Present Illness: Mrs. Brunson is 47 y/o female with recurrent complaint of abdominal pain, nausea and vomiting. She was discharged two days ago with similar complaint. The patient states that she began having diarrhea and vomiting yesterday and her had the same symptoms. She says that she tried taking Zofran but got no relief of symptoms. She describes her pain as sharp, 8/10 in severity and has no remitting or exacerbating factors. Her complaint is protracted and she has had multiple GI workups including EGD/colonoscopy and most recently laproscopic cholecystectomy. On arrival to the ED the patient's vitals and labs were within normal limits. The patient is admitted for intractable nausea, vomiting and abdominal pain. Travel Screening - Travel/Exposure Within Last 30 Days Have you traveled within the last 30 days?: No - Travel/Exposure Within Last Year Have you traveled outside the [place] in the last year?: No - Additonal Travel Details Have you been exposed to anyone with a communicable illness?: No - Travel Symptoms Symptom Screening: None Review of Systems Constitutional: Reports: Malaise. Denies: Chills, Fever Eyes: Denies: Eye discharge ENT: Denies: Congestion Respiratory: Denies: Cough Cardiovascular: Denies: Arrhythmia Endocrine: Reports: Fatigue Gastrointestinal: Reports: Abdominal pain, Diarrhea, Nausea, Vomiting Genitourinary: Denies: Dysuria Musculoskeletal: Reports: Back pain (Chronic.). Denies: Arthralgia Skin: Denies: Bruising Past Medical History - SOCIAL HISTORY Smoking Status: Light tobacco smoker (<10/day) Alcohol Use: None Drug Use: Occasional Drug Use Detail:: Marijuana - RESPIRATORY Hx Respiratory Disorders: Yes Hx Pneumonia: Yes (in past) Comment:: current smoker - CARDIOVASCULAR Hx Cardio Disorders: Yes Hx Deep Vein Thrombosis: No Hx Edema: Yes (ankles/hands-arthritis) - NEURO Hx Neuro Disorders: Yes Hx Neuropathy: Yes (sometimes hands and feet) Comment:: viral meningitis, raynauds - GI Hx GI Disorders: Yes Hx Reflux: Yes Comment:: diarrhea chronic - Hx Genitourinary Disorders: No Comment:: hystectomy - ENDOCRINE Hx Endocrine Disorders: No - MUSCULOSKELETAL Hx Musculoskeletal Disorders: Yes Hx Arthritis: Yes (R.A) Hx Fibromyalgia: Yes Comment:: lupus SLE - PSYCH Hx Psych Problems: Yes Hx Anxiety: Yes Hx Depression: Yes - HEMATOLOGY/ONCOLOGY Hx Hematology/Oncology Disorders: No Hx Bruising: No (denies) Family Medical History Any Significant Family History?: Yes Family Hx Comment (NOT TO BE USED IN PLACE OF ITEMS BELOW): son- had colon polyps age 2. father- hx colon polyps. mother/aunts-diverticulitis Hx Cancer: Grandparents *Cancer Comment: Grandmother/uncle-colon cancer H&P Meds/Allergies - Allergies Allergies: Allergies Allergy/AdvReac Type Severity Reaction Status Date / Time etanercept [From Enbrel] Allergy Severe HIVES Verified 01/28/18 12:59 Echinacea [ECHINACEA] Allergy Unknown SWELLING Verified 01/28/18 12:59 OF THE TONGUE hydroxychloroquine sulfate Allergy Unknown DIARRHEA Verified 01/28/18 12:59 [From PLAQUENIL] hyoscyamine sulfate Allergy Unknown SKIN Verified 01/28/18 12:59 [From LEVSIN] IRRITATION ketorolac tromethamine Allergy Unknown HIVES Verified 01/28/18 12:59 [From TORADOL] methotrexate [METHOTREXATE] Allergy Unknown HYPERSENSIT Verified 01/28/18 12:59 IVITY Locjxdb-Gci-Lml Reductase Allergy Unknown HIVES Verified 01/28/18 12:59 Inhibitor [[id number]-[id number]-ZRC REDUCTASE INHIBITOR] Sulfa (Sulfonamide Allergy Unknown HIVES Verified 01/28/18 12:59 Antibiotics) [SULFA(SULFONAMIDE ANTIBIOTICS)] niacin Allergy HIVES Verified 01/28/18 12:59 - Active Medications Active Medications: Current Medications Acetaminophen (Tylenol 500mg Tab) 500 mg PO Q6H PRN PRN Reason: PAIN - MILD(1-4)/FEVER Acyclovir (Zovirax) 400 mg PO BID STAS Baclofen (Lioresal) 20 mg PO QID PRN PRN Reason: MUSCLE SPASMS Citalopram Hydrobromide (Celexa) 20 mg PO QHS STAS Clonazepam (Klonopin) 0.5 mg PO Q8H PRN PRN Reason: ANXIETY Hydromorphone HCl (Dilaudid) 1 mg IV Q4H PRN PRN Reason: ABDOMINAL PAIN Sodium Chloride () 1,000 mls @ 100 mls/hr IV .Q10H PRN PRN Reason: LARGE VOLUME IV Promethazine HCl 12.5 mg/ (Sodium Chloride) 100.5 mls @ 200 mls/hr IVPB Q6H PRN PRN Reason: NAUSEA Non-Formulary Medication (Leflunomide [Leflunomide]) 10 mg PO MOTUWETHFR STAS Ondansetron HCl (Zofran) 4 mg IVP Q4H PRN PRN Reason: NAUSEA Pantoprazole Sodium (Protonix Iv) 40 mg IV DAILY [facility] Physical Exam - Vital Signs Vital Signs: Vital Signs - Last 24 Hrs Temp Pulse Pulse Resp BP BP Pulse Ox 01/28/18 16:13 98.3 F 112 H 18 102/69 97 01/28/18 13:04 99 F 67 20 150/94 99 - General General Appearance: Alert, Oriented x3, Cooperative, Anxious Limitations: No limitations - Head Head exam: Atraumatic, Normocephalic, Normal inspection - Eye Eye exam: Normal appearance, PERRL - ENT Throat exam: Normal inspection. negative: Tonsillar erythema, Tonsillar exudate - Neck Neck exam: Normal inspection, Full ROM. negative: Tenderness - Respiratory Respiratory exam: Normal lung sounds bilaterally. negative: Respiratory distress - Cardiovascular Cardiovascular Exam: Regular rate, Normal rhythm, Normal heart sounds - GI/Abdominal GI/Abdominal exam: Soft, Normal bowel sounds. negative: Distended, Guarding, Rebound, Rigid, Tenderness - Extremities Extremities exam: Normal inspection, Full ROM, Normal capillary refill. negative: Tenderness - Neurological Neurological exam: Normal gait, Oriented X3. negative: Abnormal gait, Alert, Motor sensory deficit - Psychiatric Psychiatric exam: Anxious Results - Labs Result Diagrams: 01/28/18 13:40 01/28/18 13:40 Labs Last 24 Hours: Laboratory Results - last 24 hr 01/28/18 01/28/18 13:40 13:40 WBC 10.6 RBC 5.03 Hgb 15.7 Hct 44.8 MCV 89.1 MCH 31.2 MCHC 35.0 RDW 12.1 Plt Count 330 MPV 10.4 Gran % 70.0 Lymphocytes % 21.6 Monocytes % 6.6 Eosinophils % 1.6 Basophils % 0.2 Sodium 141 Potassium 3.5 Chloride 100 Carbon Dioxide 24.0 Anion Gap 17.0 H BUN 10 Creatinine 0.6 Estimated GFR > 60 Random Glucose 102 Calcium 10.6 H Total Bilirubin 0.50 Direct Bilirubin < 0.2 AST 20 ALT 16 Alkaline Phosphatase 74 Total Protein 8.2 Albumin 5.1 H Lipase 67 H VTE H&P Assessment - Risk for VTE Risk for VTE: Yes Risk Level: High Risk Assessment Date: 01/28/18 Risk Assessment Time: 17:30 VTE Orders Placed or Will Be Placed: Yes Plan - Detailed Diagnosis and Plan (1) Vomiting Current Visit: No Status: Acute Qualifiers: Base Code: R11.10 - VOMITING, UNSPECIFIED Comment: 01/28/18: - no alarm symptoms, CMP WNL, - advancing diet to full diet and resumption of oral medication. - on IVF 0.9% Nacl @ 100mL/hr, Reglan 10mg Q6H PRN, Zofran 4 mg Q8H PO PRN. - d/c all IV pain meds and oral medications since pt tolerating advancment of diet to clear liquids. (2) Abdominal cramping Current Visit: Yes Status: Acute Base Code: R10.9 - UNSPECIFIED ABDOMINAL PAIN (3) Narcotic drug use Current Visit: No Status: Acute Base Code: F11.90 - OPIOID USE, UNSPECIFIED , UNCOMPLICATED Comment: 01/28/18: - Hx of RA and on Humira as per Ramp Service Agent. Recent battery change to morhpine pain pump. - Chronic pain with PO morphine sulfate 30mg bid and PO oxymorphone 10mg 5xday as per pain specialist. - D/C all IV pain medications if PO tolerated. (4) DVT prophylaxis Current Visit: No Status: Acute Base Code: [id number] - Comment: 01/28/18: - Lovenox 40mg SQ QD - Ambulation ad kelsey (5) Full code status Current Visit: No Status: Acute Base Code: Z78.9 - OTHER SPECIFIED HEALTH STATUS Comment: 01/28/18: - full code
[2018-01-28] MEDS: ENOXAPARIN 40 MG/0.4 ML SYR SQ SCH (18:47)
[2018-01-28] MEDS: MORPHINE SULFATE 30MG TABLET.ER PO SCH (18:47)
[2018-01-28] MEDS: CLONAZEPAM 1MG TABLET PO PRN (19:54)
[2018-01-28] MEDS ORDERED: CITALOPRAM 20 MG TABLET PO SCH (22:00)
[2018-01-28] MEDS: ACYCLOVIR 200 MG CAPSULE PO SCH (22:12)
[2018-01-29] MEDS: MORPHINE SULFATE 30MG TABLET.ER PO SCH (05:56)
[2018-01-29 06:20] LABS: HEMATOCRIT 36.2 % (35.0-47.0); HEMOGLOBIN 12.5 gm/dl (11.6-16.0); MEAN CELL VOLUME 91.9 fl (81-97); MEAN CORPUSCULAR HEMOGLOBIN 31.7 pg (27-33); MEAN CORPUSCULAR HGB CONC 34.5 g/dl (32-36); MEAN PLATELET VOLUME 10.4 fl (7.4-10.4); PLATELET COUNT 235 K/uL (130-400); RED BLOOD COUNT 3.94 M/uL (3.80-5.40); RED CELL DISTRIBUTION WIDTH 11.9 % (11.5-14.5); WHITE BLOOD COUNT W/O DIFF 6.5 K/uL (4.2-12.2)
[2018-01-29 06:38] LABS: ALB/GLOB RATIO 1.9 (1.1-1.8); ALBUMIN 3.6 g/dL (4.0-5.0); ALKALINE PHOSPHATASE 52 U/L (35-104); ALT/SGPT 39 U/L (<33); AST/SGOT 42 U/L (10.0-35.0); BLOOD UREA NITROGEN 7 mg/dL (6-20); CREATININE 0.5 mg/dL (0.5-0.9); EST GLOMERULAR FILTRATION RATE > 60 mL/min; GLUCOSE,RANDOM 86 mg/dL (74-109); LIPASE 22 U/L (13-60); TOTAL PROTEIN 5.5 g/dL (6.6-8.7)
[2018-01-29 06:55] LABS: PLATELET ESTIMATE NORMAL (NORMAL)
[2018-01-29 06:56] LABS: ANISOCYTOSIS 1+
[2018-01-29] MEDS: CLONAZEPAM 1MG TABLET PO PRN (07:20)
[2018-01-29] MEDS: ENOXAPARIN 40 MG/0.4 ML SYR SQ SCH (09:14)
[2018-01-29] MEDS: ACYCLOVIR 200 MG CAPSULE PO SCH (09:15)
[2018-01-29] MEDS ORDERED: PANTOPRAZOLE SODIUM IV 40 MG VIAL IV SCH (10:00)
[2018-01-29] MEDS ORDERED: OXYCODONE/APAP 10MG-325MG TABLET PO ONE (10:14)
--- NOTE | 2018-01-29 10:24 | Discharge Summary ---
Providers Discharge Summary Date: 01/29/18 Date of admission: 01/28/18 16:45 Attending physician: ELSIE MURILLO Physical Exam - Vital Signs Vital Signs: Vital Signs - Last 24 Hrs Temp Pulse Pulse Resp BP BP Pulse Ox 01/29/18 07:34 16 01/28/18 22:09 98.7 F 47 L 16 179/95 99 01/28/18 21:00 60 18 01/28/18 19:00 60 18 118/78 98 01/28/18 17:53 16 01/28/18 16:13 98.3 F 112 H 18 102/69 97 01/28/18 13:04 99 F 67 20 150/94 99 - General General Appearance: Alert, Oriented x3, Cooperative, Anxious Limitations: No limitations - Head Head exam: Atraumatic, Normocephalic, Normal inspection - Eye Eye exam: Normal appearance, PERRL - ENT Throat exam: Normal inspection. negative: Tonsillar erythema, Tonsillar exudate - Neck Neck exam: Normal inspection, Full ROM. negative: Tenderness - Respiratory Respiratory exam: Normal lung sounds bilaterally. negative: Respiratory distress - Cardiovascular Cardiovascular Exam: Regular rate, Normal rhythm, Normal heart sounds Peripheral Pulses: 3+: Radial (R), Radial (L), Dorsalis Pedis (R), Dorsalis Pedis (L) - GI/Abdominal GI/Abdominal exam: Soft, Normal bowel sounds. negative: Distended, Guarding, Rebound, Rigid, Tenderness - Extremities Extremities exam: Normal inspection, Full ROM, Normal capillary refill. negative: Tenderness - Neurological Neurological exam: Normal gait, Oriented X3. negative: Abnormal gait, Alert, Motor sensory deficit - Psychiatric Psychiatric exam: Anxious Hospitalization - Hospitalization Admission Diagnosis: 1. Intractable Nausea and Vomiting with Chronic pain. - Problem List/Discharge Diagnosis (1) Vomiting Current Visit: No Status: Acute Discharge Diagnosis: Base Code: R11.10 - VOMITING, UNSPECIFIED Comment: 01/28/18: - no alarm symptoms, CMP WNL, - advancing diet to full diet and resumption of oral medication. - on IVF 0.9% Nacl @ 100mL/hr, Reglan 10mg Q6H PRN, Zofran 4 mg Q8H PO PRN. - d/c all IV pain meds and oral medications since pt tolerating advancment of diet to clear liquids. (2) Abdominal cramping Current Visit: Yes Status: Acute Base Code: R10.9 - UNSPECIFIED ABDOMINAL PAIN (3) Narcotic drug use Current Visit: No Status: Acute Base Code: F11.90 - OPIOID USE, UNSPECIFIED , UNCOMPLICATED Comment: 01/29/18: - Hx of RA and on Humira as per Lay Out Carpenter. Recent battery change to morhpine pain pump. - Chronic pain with PO morphine sulfate 30mg bid and PO oxymorphone 10mg 5xday as per pain specialist. - D/C all IV pain medications if PO tolerated. (4) Healing of postoperative wound Current Visit: Yes Status: Acute Base Code: [id number] - Comment: 01/29/18: - post operative wound left flank. s/p morphine pump battery replacement. - no indication of infection of the wound or dressing. - discussed with pain management and they will review when the patient is seen in office. (5) DVT prophylaxis Current Visit: No Status: Acute Base Code: [id number] - Comment: 01/29/18: - Lovenox 40mg SQ QD - Ambulation ad kelsey (6) Full code status Current Visit: No Status: Acute Base Code: Z78.9 - OTHER SPECIFIED HEALTH STATUS Comment: 01/29/18: - full code - Hospitalization Course Hospital Course: Mrs. Brunson is 47 y/o female with recurrent complaint of abdominal pain, nausea and vomiting. She was discharged two days ago with similar complaint. The patient states that she began having diarrhea and vomiting yesterday and her had the same symptoms. She says that she tried taking Zofran but got no relief of symptoms. She describes her pain as sharp, 8/10 in severity and has no remitting or exacerbating factors. Her complaint is protracted and she has had multiple GI workups including EGD/colonoscopy and most recently laproscopic cholecystectomy. On arrival to the ED the patient's vitals and labs were within normal limits. The patient is admitted for intractable nausea, vomiting and abdominal pain. Procedures: Cardiology Procedures 01/28/18 13:19 EKG NOW Abnormal Labs: Abnormal Lab Results 01/28/18 01/29/18 01/29/18 Range/Units 13:40 05:48 05:48 Neutrophils % 32.0 L (47-80) % Lymphocytes 62.0 H (16-45) % Potassium 3.3 L (3.4-4.5) mmol/L Anion Gap 17.0 H (7-16) Calcium 10.6 H 8.5 L (8.6-10.0) mg/dL AST 42 H (10.0-35.0) U/L ALT 39 H (<33) U/L Total Protein 5.5 L (6.6-8.7) g/dL Albumin 5.1 H 3.6 L (4.0-5.0) g/dL Albumin/Globulin Ratio 1.9 H (1.1-1.8) Lipase 67 H (13-60) U/L Condition at Discharge: (2) Stable Discharge Medications - Discharge Medications Home Medications: Ambulatory Orders Oxymorphone HCl [Opana] 10 mg PO 5XD 06/21/14 [Last Taken 01/28/18] Baclofen 20 mg PO QID PRN 30 Days #30 10/19/16 [Last Taken 01/28/18] Acetaminophen [Tylenol Arthritis] 650 mg PO Q4H PRN tab 12/15/16 [Last Taken ] Morphine Sulfate 30 mg PO Q12H 03/11/17 [Last Taken 01/28/18] Citalopram Hydrobromide [Citalopram HBr] 20 mg PO QHS 10/13/17 [Last Taken 01/28] Clonazepam 0.5 mg PO Q8H PRN 10/14/17 [Last Taken 01/28/18] Leflunomide 10 mg PO MOTUWETHFR 10/14/17 [Last Taken 01/28/18] Levofloxacin [Levaquin] 500 mg PO DAILY 01/25/18 [Last Taken 01/28/18] Discharge Plan - Discharge Instructions Activity at Discharge: Resume Usual Activities As Tolerated Diet at Discharge: Advance to Usual Diet Additional Instructions: Please follow up with your GI physician on discharge. If you have nausea take your Zofran as prescribed. Do not remove the wound dressing from your recent procedure. When you see Dr. Diaz in the office he will remove the wound dressing and give further instructions for care. Quality Measures - Quality Measures Quality Measures: Documentation of Current Medications in Medical Record, Screening for High Blood Pressure and F/U Documented - Current Medications Quality Measure: Measure #130: Documentation of Current Medications Documentation of Current Medications: <Current Medications Documented/Reviewed> [G8427] - Blood Pressure Screening Quality Measure: Screening for High Blood Pressure and Follow-Up Documented Does Patient Have Any of the Following: Active Dx of HTN Blood Pressure Classification: Hypertensive Reading Systolic Measurement: 150 Diastolic Measurement: 94 Screening for High Blood Pressure: Patient Exclusion, Hx of HTN [G9744] - Elder Abuse Suspicion Index EASI Reference Information: Nigel LAZAR, Flower C, Danielle D, Sidney James.Development and validation of a tool to assist physicians identification of elder abuse: The Elder Abuse Suspicion Index (EASI ). Journal of Elder Abuse and Neglect, 2008; 20 (3): 276-300.
[2018-01-29] MEDS ORDERED: POTASSIUM CHLORIDE 20 MEQ TABLET PO ONE (10:38)
== END 2018-01-29 11:04 | disposition home or self-care (01) ==
LOC: ER 12:41 → MEDSURG 16:45
PROVIDERS: ADMIT Internal Medicine; ATTEND Internal Medicine
DX: R11.2 Nausea with vomiting, unspecified (principal); R10.9 Unspecified abdominal pain; G89.29 Other chronic pain; F11.90 Opioid use, unspecified, uncomplicated; I73.00 Raynaud's syndrome without gangrene; M06.9 Rheumatoid arthritis, unspecified; M79.7 Fibromyalgia; M32.9 Systemic lupus erythematosus, unspecified; F17.210 Nicotine dependence, cigarettes, uncomplicated; Z86.61 Personal history of infections of the central nervous system; Z90.49 Acquired absence of other specified parts of digestive tract
CPT/HCPCS: 83690 ×2; 85025; 80076; 80048; 80053; 85027; 93005; 93010; G0378 ×2; J2405; J1170; 96374; 96376; 99217; 99220; 99285; C9113; J1650; J2550; J7030

== ENCOUNTER 2018-01-30 15:17 | Emergency (ER) | payer MEDICARE, MEDICAID, SELFPAY ==
[2018-01-30] MEDS ORDERED: ONDANSETRON HCL IV 4 MG/2 ML VIAL IVP ONE (16:26)
[2018-01-30] MEDS ORDERED: LORAZEPAM 2 MG/ML VIAL IV ONE (16:28)
--- NOTE | 2018-01-30 16:31 | Emergency Department Record ---
History of Present Illness - General Chief complaint: Nausea, Vomiting, Diarrhea Stated complaint: vomiting,diarrhea Time Seen by Provider: 01/30/18 16:20 Source: Patient Mode of Arrival: Ambulatory - History of Present Illness Initial comments: nausea vomiting and diarrhea Just discharged from [facility] yesterday. Same thing times two admission in two weeks Description of Vomiting: Watery Description of Diarrhea: Water Associated Abdominal Pain: Yes Location: Diffuse Radiation: None Severity: Severe Severity scale (1-10): 10 Quality: Aching Consistency: Constant Improves with: None Worsens with: None Associated Symptoms: Nausea/vomiting - Related Data Home Medications Medication Instructions Recorded Confirmed Last Taken Ondansetron [Zofran Odt] 4 mg PO ASDIR 01/30/18 01/30/18 01/30/18 Previous Rx's Medication Instructions Recorded Promethazine HCl [Phenergan] 25 mg PO Q6HR #20 tablet 01/30/18 Allergies Allergy/AdvReac Type Severity Reaction Status Date / Time etanercept [From Enbrel] Allergy Severe HIVES Verified 01/30/18 15:22 Echinacea [ECHINACEA] Allergy Unknown SWELLING Verified 01/30/18 15:22 OF THE TONGUE hydroxychloroquine sulfate Allergy Unknown DIARRHEA Verified 01/30/18 15:22 [From PLAQUENIL] hyoscyamine sulfate Allergy Unknown SKIN Verified 01/30/18 15:22 [From LEVSIN] IRRITATION ketorolac tromethamine Allergy Unknown HIVES Verified 01/30/18 15:22 [From TORADOL] methotrexate [METHOTREXATE] Allergy Unknown HYPERSENSIT Verified 01/30/18 15:22 IVITY [id number] Reductase Allergy Unknown HIVES Verified 01/30/18 15:22 Inhibitor [[id number] REDUCTASE INHIBITOR] Sulfa (Sulfonamide Allergy Unknown HIVES Verified 01/30/18 15:22 Antibiotics) [SULFA(SULFONAMIDE ANTIBIOTICS)] niacin Allergy HIVES Verified 01/30/18 15:22 Travel Screening - Travel/Exposure Within Last 30 Days Have you traveled within the last 30 days?: No Review of Systems Reviewed: No additional complaints except as noted below Constitutional: Reports: As per HPI. Denies: Chills, Fever, Malaise, Night sweats, Weakness, Weight change Eyes: Reports: As per HPI. Denies: Eye discharge, Eye pain, Photophobia, Vision change ENT: Reports: As per HPI. Denies: Congestion, Dental pain, Ear pain, Epistaxis , Hearing loss, Throat pain Respiratory: Reports: As per HPI. Denies: Cough, Dyspnea, Hemoptysis, Stridor, Wheezes Cardiovascular: Reports: As per HPI. Denies: Arrhythmia, Chest pain, Dyspnea on exertion, Edema, Murmurs, Orthopnea, Palpitations, Paroxysmal nocturnal dyspnea, Rheumatic Fever, Syncope Endocrine: Reports: As per HPI. Denies: Fatigue, Heat or cold intolerance, Polydipsia, Polyuria Gastrointestinal: Reports: As per HPI, Abdominal pain, Diarrhea, Nausea, Vomiting. Denies: Constipation, Hematemesis, Hematochezia, Melena Genitourinary: Reports: As per HPI. Denies: Abnormal menses, Discharge, Dyspareunia, Dysuria, Frequency, Hematuria, Incontinence, Retention, Urgency Musculoskeletal: Reports: As per HPI. Denies: Arthralgia, Back pain, Gout, Joint swelling, Myalgia, Neck pain Skin: Reports: As per HPI. Denies: Bruising, Change in color, Change in hair/ nails, Lesions, Pruritus, Rash Neurological: Reports: As per HPI. Denies: Abnormal gait, Confusion, Headache, Numbness, Paresthesias, Seizure, Tingling, Tremors, Vertigo, Weakness Psychiatric: Reports: As per HPI. Denies: Anxiety, Auditory hallucinations, Depression, Homicidal thoughts, Suicidal thoughts, Visual hallucinations Hematological/Lymphatic: Reports: As per HPI. Denies: Anemia, Blood Clots, Easy bleeding, Easy bruising, Swollen glands Past Medical History - SOCIAL HISTORY Smoking Status: Light tobacco smoker (<10/day) Alcohol Use: None Drug Use: None - RESPIRATORY Hx Respiratory Disorders: Yes Hx Pneumonia: Yes (in past) Comment:: current smoker - CARDIOVASCULAR Hx Cardio Disorders: Yes Hx Deep Vein Thrombosis: No Hx Edema: Yes (ankles/hands-arthritis) - NEURO Hx Neuro Disorders: Yes Hx Neuropathy: Yes (sometimes hands and feet) Comment:: viral meningitis, raynauds - GI Hx GI Disorders: Yes Hx Reflux: Yes Comment:: diarrhea chronic - Hx Genitourinary Disorders: No Comment:: hystectomy - ENDOCRINE Hx Endocrine Disorders: No - MUSCULOSKELETAL Hx Musculoskeletal Disorders: Yes Hx Arthritis: Yes (R.A) Hx Fibromyalgia: Yes Comment:: lupus SLE - PSYCH Hx Psych Problems: Yes Hx Anxiety: Yes Hx Depression: Yes - HEMATOLOGY/ONCOLOGY Hx Hematology/Oncology Disorders: No Hx Bruising: No (denies) Family Medical History Any Significant Family History?: Yes Family Hx Comment (NOT TO BE USED IN PLACE OF ITEMS BELOW): son- had colon polyps age 2. father- hx colon polyps. mother/aunts-diverticulitis Hx Cancer: Grandparents *Cancer Comment: Grandmother/uncle-colon cancer Physical Exam - General General Appearance: Alert, Oriented x3, Cooperative, No acute distress - Head Head exam: Normal inspection - Eye Eye exam: Normal appearance, PERRL Pupils: Normal accommodation - ENT ENT exam: Normal exam, Mucous membranes moist, Normal external ear exam, Normal orophraynx, TM's normal bilaterally Ear exam: Normal external inspection. negative: External canal tenderness Nasal Exam: Normal inspection. negative: Discharge, Sinus tenderness Mouth exam: Normal external inspection, Tongue normal Teeth exam: Normal inspection. negative: Dental caries Throat exam: Normal inspection. negative: Tonsillar erythema, Tonsillar exudate - Neck Neck exam: Normal inspection, Full ROM. negative: Tenderness - Respiratory Respiratory exam: Normal lung sounds bilaterally. negative: Respiratory distress - Cardiovascular Cardiovascular Exam: Regular rate, Normal rhythm, Normal heart sounds - GI/Abdominal GI/Abdominal exam: Soft, Normal bowel sounds. negative: Tenderness - Rectal Rectal exam: Deferred - exam: Deferred - Extremities Extremities exam: Normal inspection, Full ROM, Normal capillary refill. negative: Tenderness - Back Back exam: Reports: Normal inspection, Full ROM. Denies: Muscle spasm, Rash noted, Tenderness - Neurological Neurological exam: Alert, Normal gait, Oriented X3, Reflexes normal - Psychiatric Psychiatric exam: Normal affect, Normal mood - Skin Skin exam: Dry, Intact, Normal color, Warm Course Vital Signs 01/30/18 15:27 Temperature 98.3 F Pulse Rate 49 L Respiratory 20 Rate Blood Pressure 180/113 Pulse Ox 99 - Reevaluation(s) Reevaluation #1: patient is feeling better and will discharge and want her to follow up with Dr Gamboa her primary Dr. 01/30/18 17:36 Reevaluation #2: feeling better 01/30/18 17:43 Reevaluation #3: her gall bladder incision and pain pump incisions look good 01/30/18 18:09 Reevaluation #4: feeling better 01/30/18 18:15 Medical Decision Making - Lab Data Result diagrams: 01/30/18 15:40 01/30/18 15:40 Disposition Clinical Impression: Vomiting Qualifiers: Vomiting type: unspecified Vomiting Intractability: non-intractable Nausea presence: with nausea Qualified Code(s): R11.2 - Nausea with vomiting, unspecified Nausea & vomiting Qualifiers: Vomiting type: unspecified Vomiting Intractability: non-intractable Qualified Code(s): R11.2 - Nausea with vomiting, unspecified Disposition: Home, Self-Care Condition: (1) Good Instructions: Acute Nausea and Vomiting (ED) Additional Instructions: use phenergan 25 mg every 6 hours as needed for nausea follow up with her primary Dr in 1-3 days Prescriptions: Promethazine HCl [Phenergan] 25 mg PO Q6HR #20 tablet Forms: Patient Portal Access Time of Disposition: 17:38 Quality - Quality Measures Quality Measures: N/A - Blood Pressure Screening Does Patient Have Any of the Following: No Blood Pressure Classification: Hypertensive Reading Systolic Measurement: 180 Diastolic Measurement: 113 Screening for High Blood Pressure: < First Hypertensive BP, F/U Documented > [ [id number]] First Hypertensive Follow-up Interventions: Referral to alternative/primary care provider.
[2018-01-30] MEDS ORDERED: 0.9 % SODIUM CHLORIDE 1000ML 1,000 ML IV SCH ×2 (16:45→17:30)
[2018-01-30] MEDS ORDERED: PROMETHAZINE HCL 25 MG/ML VIAL IV ONE (17:13)
[2018-01-30] MEDS ORDERED: HYDROMORPHONE HCL 2 MG/ML VIAL IVP ONE (17:17)
[2018-01-30 17:52] LABS: BASO % 0.2 % (0-6); EOS % 1.5 % (0-6); GRAN % 68.8 % (47-80); HEMATOCRIT 42.4 % (35.0-47.0); HEMOGLOBIN 14.8 gm/dl (11.6-16.0); LYMPH % 22.5 % (16-45); MEAN CELL VOLUME 89.6 fl (81-97); MEAN CORPUSCULAR HEMOGLOBIN 31.3 pg (27-33); MEAN CORPUSCULAR HGB CONC 34.9 g/dl (32-36); MEAN PLATELET VOLUME 11.1 fl (7.4-10.4); PLATELET COUNT 316 K/uL (130-400); RED BLOOD COUNT 4.73 M/uL (3.80-5.40); RED CELL DISTRIBUTION WIDTH 11.9 % (11.5-14.5); WHITE BLOOD COUNT W/O DIFF 13.5 K/uL (4.2-12.2)
[2018-01-30 18:05] LABS: BLOOD UREA NITROGEN 7 mg/dL (6-20); CREATININE 0.5 mg/dL (0.5-0.9); EST GLOMERULAR FILTRATION RATE > 60 mL/min
[2018-01-30 18:08] LABS: GLUCOSE,RANDOM 80 mg/dL (74-109)
== END 2018-01-30 18:57 | disposition home or self-care (01) ==
LOC: ER 15:17
DX: R11.2 Nausea with vomiting, unspecified (principal); R19.7 Diarrhea, unspecified; F17.210 Nicotine dependence, cigarettes, uncomplicated; Z90.49 Acquired absence of other specified parts of digestive tract
CPT/HCPCS: 99284 ×2; 96374; 96375; 96361; 85025; 80048; J2405; J1170; J2060; J2550; J7030